=== PATIENT | female | born 1950 | race Caucasian/White ===

== ENCOUNTER → 2017-04-18 | Outpatient (CLI) | payer BC ==
--- NOTE | 2017-04-19 12:40 | MM ---
Reason for exam: screening (asymptomatic). Last mammogram was performed 1 year ago. History: Patient is postmenopausal and is nulliparous. Family history of breast cancer in maternal aunt. Benign US breast aspiration single RT of the right breast, April 27, 2015. Benign excisional biopsy of the right breast, January 06, 1999. Reductions of both breasts, 1995. Cyst aspiration of the right breast. Took estrogen for 10 years beginning at age 47. Took progesterone for 10 years beginning at age 47. Physical Findings: A clinical breast exam by your physician is recommended on an annual basis and results should be correlated with mammographic findings. MG Screening Mammo w CAD Bilateral CC and MLO view(s) were taken. Prior study comparison: April 15, 2016, bilateral MG 3d diag mammo w/cad JAMILA. April 15, 2016, right breast US breast limited RT. April 13, 2015, bilateral MG screening mammo w CAD. April 04, 2014, bilateral MG screening mammo w CAD. The breast tissue is heterogeneously dense. This may lower the sensitivity of mammography. No significant changes when compared with prior studies. ASSESSMENT: Benign, BI-RAD 2 RECOMMENDATION: Routine screening mammogram of both breasts in 1 year.
== END | disposition home or self-care (01) ==
LOC: RADMAMWWP 11:09
PROVIDERS: ATTEND Internal Medicine
DX: Z12.31 Encounter for screening mammogram for malignant neoplasm of breast (principal); Z29.9 Encounter for prophylactic measures, unspecified

== ENCOUNTER → 2018-04-27 | Outpatient (CLI) | payer BC ==
--- NOTE | 2018-04-30 15:11 | MM ---
Reason for exam: screening (asymptomatic). Last mammogram was performed 1 year ago. History: Patient is postmenopausal and is nulliparous. Family history of breast cancer in maternal aunt. Benign US breast aspiration single RT of the right breast, April 27, 2015. Benign excisional biopsy of the right breast, January 06, 1999. Reductions of both breasts, 1995. Cyst aspiration of the right breast. Took estrogen for 10 years beginning at age 47. Took progesterone for 10 years beginning at age 47. Physical Findings: A clinical breast exam by your physician is recommended on an annual basis and results should be correlated with mammographic findings. MG 3D Screening Mammo W/Cad Bilateral CC and MLO view(s) were taken. Prior study comparison: April 18, 2017, bilateral MG screening mammo w CAD. April 15, 2016, bilateral MG 3d diag mammo w/cad JAMILA. The breast tissue is heterogeneously dense. This may lower the sensitivity of mammography. Previous mammotome biopsy in the right breast. There is chronic nodularity bilaterally. Two groups of microcalcifications in the right breast are unchanged. No significant changes when compared with prior studies. ASSESSMENT: Benign, BI-RAD 2 RECOMMENDATION: Routine screening mammogram of both breasts in 1 year.
== END | disposition home or self-care (01) ==
LOC: RADMAMWWP 10:52
PROVIDERS: ATTEND Family Medicine
DX: Z12.31 Encounter for screening mammogram for malignant neoplasm of breast (principal)
CPT/HCPCS: 77063; 77067

== ENCOUNTER → 2023-01-12 | Day surgery (SDC) | payer BC ==
--- NOTE | 2023-01-12 09:10 | P.PCN ---
Date of Procedure: 01/12/23 Preoperative Diagnosis: Microcalcifications of concern right breast upper outer quadrant Postoperative Diagnosis: Same Procedure(s) Performed: Stereotactic core biopsy right breast Anesthesia: local Surgeon: Heather Boyd Pathology: other (Breast tissue, radiograph reveals microcalcifications of concern) Condition: stable Disposition: same day Indications for Procedure: Microcalcifications of concern right breast upper outer quadrant Operative Findings: Radiograph of specimen reveals microcalcifications of concern Description of Procedure: The patient is a 72-year-old white female seen in consultation for Dr. Marc 1 a routine screening mammogram was noted to have microcalcifications of concern in the 9 o'clock position of the right breast. Risk and benefits of stereotactic core biopsy were discussed with the patient and she wishes to proceed. Additionally a palpable area in the right breast was identified which will be further evaluated after the stereotactic core biopsy. The patient was taken to the stereotactic core biopsy room. She was positioned prone on the Lo-rad table. A retail representative film was obtained: a lateral to medial approach was utilized. The calcifications of concern were identified. The calcifications were targeted. The breast was prepped using Betadine. 20 mL of 1% lidocaine were used to anesthetize the area of concern. A 9-gauge vacuum- assisted core rotating biopsy needle was driven to the correct coordinates. A prefire film was obtained. The needle appeared to be in the correct location. The needle was fired. A postoperative film was obtained, the needle appeared to be in the correct location. 12 specimens were obtained. Radiograph of the specimen revealed only one small microcalcification therefore repeat radiograph was obtained. The needle was advanced slightly. 5 additional specimens were obtained. Radiograph of the new specimen revealed the calcifications of concern. A secure ale top-hat clip was placed. The clip appeared to be in the correct location. The patient tolerated the procedure in stable condition. The specimen will be sent to pathology. The patient will follow-up with Dr. Spivey next week. The patient also had an area of probable change noted in her right breast and this will be evaluated as well.
--- NOTE | 2023-01-12 12:18 | MM ---
Addendum entered and electronically signed by Heather Boyd MD 01/12/23 09:41: Following the stereotactic core biopsy the palpable change which had been felt in the right breast appears to be dissipated. It is possible that this was sampled and the stereo biopsy. We will check this area again when she comes next week for her post procedure visit. Original Note: Date of Procedure: 01/12/23 Preoperative Diagnosis: Microcalcifications of concern right breast upper outer quadrant Postoperative Diagnosis: Same Procedure(s) Performed: Stereotactic core biopsy right breast Anesthesia: local Surgeon: Heather Boyd Pathology: other (Breast tissue, radiograph reveals microcalcifications of concern) Condition: stable Disposition: same day Indications for Procedure: Microcalcifications of concern right breast upper outer quadrant Operative Findings: Radiograph of specimen reveals microcalcifications of concern Description of Procedure: The patient is a 72-year-old white female seen in consultation for Dr. Marc. A routine screening mammogram was noted to have microcalcifications of concern in the 9 o'clock position of the right breast. Risk and benefits of stereotactic core biopsy were discussed with the patient and she wished to proceed. Additionally a palpable area in the right breast was identified which will be further evaluated after the stereotactic core biopsy. The patient was taken to the stereotactic core biopsy room. She was positioned prone on the Lo-rad table. A baggage smasher film was obtained: a lateral to medial approach was utilized. The calcifications of concern were identified. The calcifications were targeted. The breast was prepped using Betadine. 20 mL of 1% lidocaine were used to anesthetize the area of concern. A 9-gauge vacuum- assisted core rotating biopsy needle was driven to the correct coordinates. A prefire film was obtained. The needle appeared to be in the correct location. The needle was fired. A postoperative film was obtained, the needle appeared to be in the correct location. 12 specimens were obtained. Radiograph of the specimen revealed only one small microcalcification therefore repeat sampling was obtained. The needle was advanced slightly. 5 additional specimens were obtained. Radiograph of the new specimen revealed the calcifications of concern. A secure ale top-hat clip was placed. The clip appeared to be in the correct location. The patient tolerated the procedure in stable condition. The specimen will be sent to pathology. The patient will follow-up with Dr. Spivey next week. The patient also had an area of probable change noted in her right breast and this will be evaluated as well. MTDD
== END ==
LOC: RADMAMWWP 07:14
PROVIDERS: ATTEND Surgery
DX: N60.21 Fibroadenosis of right breast (principal)
CPT/HCPCS: 88305; 19081; A4648

== ENCOUNTER → 2023-01-12 | Outpatient (CLI) | payer BC ==
[2023-01-12 07:43] VITALS: BP 120/64; PULSE 91; RESP 18; TEMP 97.6
--- NOTE | 2023-01-12 08:12 | P.GSHP ---
History of Present Illness H&P Date: 01/12/23 Chief Complaint: Abnormal right breast mammogram Yenifer is a 72-year-old white female seen in consultation for Dr. Marc regarding an abnormal right breast mammogram. She underwent a bilateral mammogram of the breast on 2922. Cooperative microcalcifications at the po sterior third of the right breast at the 9 o'clock position were noted. Additional views of the right breast for recommended and these were performed and 3323 pleomorphic demonstrated cluster calcifications in the right breast at 9:00 were noted in stereotactic core biopsy was recommended. Nothing of concern had been noted in the left breast. She does not feel any lumps masses or nodules of concern in either breast. She had a biopsy done approximately 20 years ago and she does not remember which breast but it was not malignant. She does not complain of any recent trauma or infection the breast. She is not complaining of any nipple discharge or skin changes. She has had bilateral breast reduction. Caffeine:1 cup coffee/day nicotien: none chocolate: occasional BCP: none Family History: maternal aunt: of breast cancer sister: breast cancer Hormonal History: menarche: 15 G0 menopause: 48 hormones: none Surgical History: appy gallbladder breast reduction Medical History: HTN GERD depression anxiety muscle aches back pain Social History: nicotine: none alcohol: beer daily drugs: Marijuana gummies at night - Constitutional Constitutional: Denies chills, Denies fever - EENT Eyes: denies blurred vision, denies pain Ears: deny: decreased hearing, tinnitus Ears, nose, mouth and throat: Reports headache, Denies sore throat - Breasts Breasts: bilateral: as per HPI - Cardiovascular Comment: tachycardia Cardiovascular: Reports shortness of breath, Denies chest pain - Respiratory Respiratory: Reports cough - Gastrointestinal Comment: GERD - Genitourinary (Female) Genitourinary: Denies dysuria, Denies hematuria - Menstruation Menstruation: Reports postmenopausal - Musculoskeletal Musculoskeletal: Reports myalgias - Integumentary Integumentary: Denies pruritus, Denies rash - Neurological Neurological: Denies numbness, Denies weakness - Psychiatric Psychiatric: Reports anxiety, Reports depression - Endocrine Endocrine: Reports fatigue - Hematologic/Lymphatic Comment: none - Allergic/Immunologic Allergic/Immunologic: Reports seasonal allergies Past Medical History Past Medical History: GERD/Reflux, Osteoarthritis (OA) Additional Past Medical History / Comment(s): back pain frequent History of Any Multi-Drug Resistant Organisms: None Reported Past Surgical History: Appendectomy, Breast Surgery Additional Past Surgical History / Comment(s): breast reduction Past Anesthesia/Blood Transfusion Reactions: No Reported Reaction Past Psychological History: Anxiety Smoking Status: Former smoker Past Alcohol Use History: Daily Additional Past Alcohol Use History / Comment(s): quit smoking age 22. frequent daily one beer, not always Past Drug Use History: None Reported - Past Family History Mother Family Medical History: No Reported History Medications and Allergies Home Medications Medication Instructions Recorded Confirmed Type ALPRAZolam [Xanax] 0.5 mg PO BID PRN 02/17/15 01/12/23 History Cyclobenzaprine [Flexeril] 10 mg PO BID 02/17/15 01/12/23 History Omeprazole [PriLOSEC] 20 mg PO AC-BRKFST 02/17/15 01/12/23 History Sertraline [Zoloft] 100 mg PO DAILY 02/17/15 01/12/23 History Zolpidem [Ambien] 10 mg PO HS PRN 02/17/15 01/12/23 History Allergies Allergy/AdvReac Type Severity Reaction Status Date / Time No Known Allergies Allergy Verified 01/12/23 07:34 Surgical - Exam Vital Signs Temp Pulse Resp BP Pulse Ox 97.6 F 91 18 120/64 100 01/12/23 07:36 01/12/23 07:36 01/12/23 07:36 01/12/23 07:36 01/12/23 07:36 BMI: 22.3 - General moderate distress - Eyes normal ocular movement - Neck trachea midline - Respiratory normal respiratory effort, clear to auscultation - Cardiovascular Rhythm: regular Heart Sounds: normal: S1, S2 - Abdomen Abdomen: soft, non tender, no guarding, no rigid, no rebound - Integumentary normal turgor - Neurologic no disoriented, no combative - Musculoskeletal normal gait - Psychiatric oriented to time, oriented to person, oriented to place, speech is normal, memory intact Breast Exam: BRA: 40C inspection: Bilateral well-healed scars from prior reduction mammoplasty Palpation: Right breast: multiple positional exam fibers glandular tissue, at approximately the 8 o'clock position approximately 3 cm from the nipple there is an area of nodularity which is firm and is most likely related to scar tissue but it is more discrete than the surrounding tissue Right axilla: No adenopathy of concern Left breast: Multi-positional exam fibroglandular tissue, post operative changes, no dominant masses or nodules of concern Left axilla: No adenopathy of concern Results Mammogram reviewed with Dr. Thomas, a true lateral view was recommended Assessment and Plan Assessment: Impression: Radiographic abnormality right breast/additional views recommended Palpable change right breast at approximately 8 o'clock position may or may not correspond to radiographic abnormality Status post bilateral reduction mammoplasty Family history of breast cancer Plan: Stereotactic core biopsy right breast microcalcifications of concern Possible core biopsy of palpable abnormality right breast Risk and benefits of surgery to core biopsy discussed with the patient. Risks include but are not limited to bleeding, infection, reaction to the anesthetic. If the lesion samples is discordant been possible open biopsy would be recommended. The patient understands and wishes to proceed Cc: Dr. Marc
== END ==
LOC: WWCWWP 07:13
PROVIDERS: ATTEND Surgery
DX: Z85.3 Personal history of malignant neoplasm of breast (principal); F32.A Depression, unspecified; F41.9 Anxiety disorder, unspecified; I10 Essential (primary) hypertension; K21.9 Gastro-esophageal reflux disease without esophagitis; M19.90 Unspecified osteoarthritis, unspecified site; Z80.3 Family history of malignant neoplasm of breast; Z87.891 Personal history of nicotine dependence; Z90.49 Acquired absence of other specified parts of digestive tract

== ENCOUNTER → 2023-03-09 | Outpatient (CLI) | payer BC ==
[2023-03-09 12:35] VITALS: BP 123/73; PULSE 95; RESP 18; TEMP 97.4
== END ==
LOC: WWCWWP 11:42
PROVIDERS: ATTEND Surgery
DX: N62 Hypertrophy of breast (principal); Z87.891 Personal history of nicotine dependence; Z53.21 Procedure and treatment not carried out due to patient leaving prior to being seen by health care provider

== ENCOUNTER → 2023-04-27 | Outpatient (CLI) | payer BC ==
--- NOTE | 2023-04-27 16:12 | P.PN ---
Subjective Progress Note Date: 04/27/23 Principal diagnosis: atypical lobular hyperplasia Abnormal right breast mammogram Yenifer is a 72-year-old white female seen in consultation for Dr. Marc regarding an abnormal right breast mammogram. She underwent a bilateral mammogram of the breast on 2922. Cooperative microcalcifications at the posterior third of the right breast at the 9 o'clock position were noted. Additional views of the right breast for recommended and these were performed and 3323 pleomorphic demonstrated cluster calcifications in the right breast at 9:00 were noted in stereotactic core biopsy was recommended. Nothing of concern had been noted in the left breast. She does not feel any lumps masses or nodules of concern in either breast. She had a biopsy done approximately 20 years ago and she does not remember which breast but it was not malignant. She does not complain of any recent trauma or infection the breast. She is not complaining of any nipple discharge or skin changes. She has had bilateral breast reduction. stero biopsy of the right breast on 01-12-23 revealed focal atypical hyperplasia, radiograph reviewed with Dr. Webb who thought there were additional microcalcifications and a nocule. Recmmended resection in the OR. Caffeine:1 cup coffee/day nicotien: none chocolate: occasional BCP: none Family History: maternal aunt: of breast cancer sister: breast cancer Hormonal History: menarche: 15 G0 menopause: 48 hormones: none Surgical History: appy gallbladder breast reduction Medical History: HTN GERD depression anxiety muscle aches back pain Social History: nicotine: none alcohol: beer daily drugs: Marijuana gummies at night - Constitutional Constitutional: Denies chills, Denies fever - EENT Eyes: denies blurred vision, denies pain Ears: deny: decreased hearing, tinnitus Ears, nose, mouth and throat: Reports headache, Denies sore throat - Breasts Breasts: bilateral: as per HPI - Cardiovascular Comment: tachycardia Cardiovascular: Reports shortness of breath, Denies chest pain - Respiratory Respiratory: Reports cough - Gastrointestinal Comment: GERD - Genitourinary (Female) Genitourinary: Denies dysuria, Denies hematuria - Menstruation Menstruation: Reports postmenopausal - Musculoskeletal Musculoskeletal: Reports myalgias - Integumentary Integumentary: Denies pruritus, Denies rash - Neurological Neurological: Denies numbness, Denies weakness - Psychiatric Psychiatric: Reports anxiety, Reports depression - Endocrine Endocrine: Reports fatigue - Hematologic/Lymphatic Comment: none - Allergic/Immunologic Allergic/Immunologic: Reports seasonal allergies Past Medical History Past Medical History: GERD/Reflux, Osteoarthritis (OA) Additional Past Medical History / Comment(s): back pain frequent History of Any Multi-Drug Resistant Organisms: None Reported Past Surgical History: Appendectomy, Breast Surgery Additional Past Surgical History / Comment(s): breast reduction Past Anesthesia/Blood Transfusion Reactions: No Reported Reaction Past Psychological History: Anxiety Smoking Status: Former smoker Past Alcohol Use History: Daily Additional Past Alcohol Use History / Comment(s): quit smoking age 22. frequent daily one beer, not always Past Drug Use History: None Reported - Past Family History Mother Family Medical History: No Reported History Medications and Allergies Home Medications Medication Instructions Recorded Confirmed Type ALPRAZolam [Xanax] 0.5 mg PO BID PRN 02/17/15 01/12/23 History Cyclobenzaprine [Flexeril] 10 mg PO BID 02/17/15 01/12/23 History Omeprazole [PriLOSEC] 20 mg PO AC-BRKFST 02/17/15 01/12/23 History Sertraline [Zoloft] 100 mg PO DAILY 02/17/15 01/12/23 History Zolpidem [Ambien] 10 mg PO HS PRN 02/17/15 01/12/23 History Allergies Allergy/AdvReac Type Severity Reaction Status Date / Time No Known Allergies Allergy Verified 01/12/23 07:34 Objective - Constitutional General appearance: Present: cooperative - EENT Eyes: Present: EOMI ENT: Present: hearing grossly normal - Neck Neck: Present: normal ROM - Respiratory Respiratory: bilateral: CTA - Cardiovascular Heart sounds: normal: S1, S2 - Gastrointestinal General gastrointestinal: Present: soft - Integumentary Integumentary: Present: normal turgor - Musculoskeletal Musculoskeletal: Present: gait normal - Psychiatric Psychiatric: Present: A&O x's 3, appropriate affect, intact judgment & insight - Additional findings Additional findings: Breast Exam: BRA: 40C inspection: Bilateral well-healed scars from prior reduction mammoplasty Palpation: Right breast: multiple positional exam fibers glandular tissue, at approximately the 8 o'clock position approximately 3 cm from the nipple there is an area of nodularity which is firm and is most likely related to scar tissue but it is more discrete than the surrounding tissue Right axilla: No adenopathy of concern Left breast: Multi-positional exam fibroglandular tissue, post operative changes, no dominant masses or nodules of concern Left axilla: No adenopathy of concern Assessment and Plan Assessment: Impression: HTN GERD depression anxiety muscle aches back pain Atypical lobular hyperplasia on core biopsy right breast/reviewed with Dr. Webb from radiology who felt there was nodularity and additional calcifications in the area and recommended needle localization and excision Plan: Needle localization and excisional biopsy lesion of concern in the right breast, possible onco- plastic tissue transfer Risks and benefits of the procedure discussed with the patient. Risks include but are not limited to bleeding, infection, reaction to the anesthetic. If the needle removed that is possible that additional tissue would need to be retrieved at a later time. CC: DR. Hay
[2023-04-27 16:13] VITALS: BP 98/61; PULSE 93; RESP 16; TEMP 97.7
== END ==
LOC: WWCWWP 15:27
PROVIDERS: ATTEND Surgery
DX: N62 Hypertrophy of breast (principal); N60.91 Unspecified benign mammary dysplasia of right breast; I10 Essential (primary) hypertension; K21.9 Gastro-esophageal reflux disease without esophagitis; F32.A Depression, unspecified; F41.9 Anxiety disorder, unspecified; M19.90 Unspecified osteoarthritis, unspecified site; Z80.3 Family history of malignant neoplasm of breast; Z87.891 Personal history of nicotine dependence

== ENCOUNTER 2023-05-09 07:21 | Day surgery (SDC) | payer BC ==
[~2023-05-09 07:21] MED LIST: DEXAMETHASONE SOD PHOSPHATE 4 MG/ML 1 ML VIAL IV ONE; HEPARIN SODIUM,PORCINE/PF 5,000 UNIT/0.5 ML SYRINGE SQ PRN; HYDROmorphone 0.5 MG/0.5 ML SYRINGE IVP PRN; LACTATED RINGERS 1,000 ML IV SCH; MIDAZOLAM 2 MG/2 ML VIAL IV PRN; ONDANSETRON 4 MG/2 ML VIAL IVP ONE; Pre Op ABX Message 1 EACH MISC MISCELLANE ONE
[2023-05-09] MEDS ORDERED: ALPRAZolam 0.25 MG TAB ONE (08:13)
[2023-05-09] MEDS ORDERED: ALPRAZolam 0.25 MG TAB PO ONE (08:21)
[2023-05-09 08:33] LABS: Anisocytosis Slight; Basophils % (A) 1 %; Eosinophils # (A) 0.2 k/uL (0-0.7); Eosinophils % (A) 2 %; HCT 28.9 % (34.0-46.0); HGB 9.4 gm/dL (11.4-16.0); Hypochromasia Slight; Lymphocytes # (A) 1.1 k/uL (1.0-4.8); Lymphocytes % (A) 15 %; MCH 26.1 pg (25.0-35.0); MCHC 32.4 g/dL (31.0-37.0); MCV 80.4 fL (80.0-100.0); Mean Platelet Volume 7.5; Microcytosis Slight; Monocytes # (A) 0.2 k/uL (0-1.0); Monocytes % (A) 3 %; Neutrophils # (A) 5.6 k/uL (1.3-7.7); Neutrophils % (A) 78 %; Platelet Count 339 k/uL (150-450); RBC 3.59 m/uL (3.80-5.40); RDW 17.5 % (11.5-15.5); WBC 7.1 k/uL (3.8-10.6)
[2023-05-09 08:43] LABS: ALT 15 U/L (4-34); AST 26 U/L (14-36); African American GFR (CKD) 50 (>60 ml/min/1.73 sqM); Albumin 4.2 g/dL (3.5-5.0); Alkaline Phosphatase 105 U/L (38-126); Anion Gap 5 mmol/L; Blood Urea Nitrogen 16 mg/dL (7-17); Calcium 9.4 mg/dL (8.4-10.2); Carbon Dioxide 25 mmol/L (22-30); Chloride 104 mmol/L (98-107); Glucose 90 mg/dL (74-99); Non-African American GFR(CKD) 43 (>60 ml/min/1.73 sqM); Potassium 3.9 mmol/L (3.5-5.1); Sodium 134 mmol/L (137-145); Total Bilirubin 0.3 mg/dL (0.2-1.3); Total Protein 6.9 g/dL (6.3-8.2)
[2023-05-09] MEDS ORDERED: LIDOCAINE 1% INJ 10MG/ML (20 ML MDV) SQ ONE (09:04)
[2023-05-09 09:45] VITALS: RESP 16
[2023-05-09] MEDS ORDERED: HYDROmorphone (PF) 1 MG/ML ONE (09:48)
[2023-05-09] MEDS ORDERED: fentaNYL (PF) 50 MCG/ML 2 ML AMP ONE (09:48)
[2023-05-09] MEDS ORDERED: MIDAZOLAM 2 MG/2 ML VIAL ONE (09:48)
[2023-05-09] MEDS ORDERED: PHENYLEPHRINE-0.9% NACL SYG 1,000 MCG/10 ML SYRINGE ONE (09:48)
[2023-05-09] MEDS ORDERED: PROPOFOL 10 MG/ML 20 ML VIAL IV ONE (09:48)
--- NOTE | 2023-05-09 10:50 | P.OP ---
Date of Procedure: 05/09/23 Preoperative Diagnosis: Atypical ductal hyperplasia on stereotactic core biopsy right breast Postoperative Diagnosis: Same Procedure(s) Performed: Right breast needle localization area of concern as well as made the placement to the area of concern with localization and excisional biopsy Anesthesia: ARGELIA Surgeon: Heather Boyd Estimated Blood Loss (ml): 3 IV fluids (ml): 300 Pathology: other (Breast tissue) Condition: stable Disposition: same day Indications for Procedure: Stereotactic core biopsy right breast revealing atypical ductal hyperplasia Operative Findings: Fibrofatty breast tissue Description of Procedure: The patient preoperatively was seen in the radiology suite where needle localization of the area of concern was performed as well as make seed placement. She was then brought to the operative suite. Following induction of anesthesia the right breast was prepped and draped in a sterile fashion. Using the wand from the food the area of highest was identified. Wide excision was performed including taking a portion of the skin anteriorly. Dissection was performed posterior onto the pectoralis muscle. After assured that hemostasis was attained the specimen was painted for orientation. Surgicel however powder was placed. The deep tissues were closed using 3-0 Vicryl suture. The subcutaneous tissue was closed using 3-0 Vicryl. This was followed by a 4-0 subcuticular skin suture. Steri-Strips were applied. All instrument and sponge counts were correct at the end of the case. Radiograph of the specimen revealed that the clip as well as the mag seed to be present.
[2023-05-09 11:02] VITALS: TEMP 97.1
[2023-05-09 11:05] LABS: Glucose,Whole Blood 118 mg/dL (70-110)
[2023-05-09] MEDS ORDERED: HYDROcodone/APAP 5-325MG 1 EACH TAB ONE (12:00)
[2023-05-09] MEDS ORDERED: HYDROcodone/APAP 5-325MG 1 EACH TAB PO ONE (12:02)
[2023-05-09 12:45] VITALS: BP 112/58; PULSE 92
--- NOTE | 2023-05-17 12:38 | MM ---
Risk Values: [place] 5 year model risk: 2.7%. NCI Lifetime model risk: 6.5%. Pathology Description: Approach: Lateral to Medial Needle Type: Bard 14g x 10cm bards 7cm needle used and mag seedThe procedure of needle localization with wire placement and than surgical excision was explained to the patient. Benefits, alternatives, and risks were discussed. An informed consent was then obtained. The shortest pathway for procedure was chosen. Shortest pathway was a lateral approach. The microclip as well as the residual microcalcifications are targeted at the site of biopsy-proven ADH. The overlying skin was prepped and draped in usual sterile fashion. Lidocaine was used as anesthetic into the skin and subcutaneous tissue up to the level of area of concern. Both a 9 cm needle as well as a Mammotome MagSeed were used. The needle/wire targeting the clip in the MagSeed introducer targeted the residual calcifications located just posterior. They were placed via a lateral approach under mammographic guidance. Subsequent 90 degrees mammogram shows both needles to be in satisfactory position relative to the targeted area. At this point, wire was placed and the needle was withdrawn and the MagSeed was deployed. The wire was fixed to patient's skin. Images were marked for surgeon. The patient tolerated the procedure well without any immediate complication. The patient was kept in the radiology department for short stay after the procedure and then taken to surgery for surgical excision. Targeted clip, MagSeed, residual microcalcifications, and wire are identified in specimen mammogram. The patient was kept in hospital for short stay after the procedure and then discharged home in stable condition. IMPRESSION: Successful, uncomplicated needle + MagSeed localization with wire placement and surgical excision of site of biopsy-proven ADH in the right breast, full pathology results to follow. Pathology Results: Result: High risk, Atypical lobular hyperplasia. RIGHT BREAST, LUMPECTOMY: Scattered areas of lobular neoplasia having features compatible with atypical lobular hyperplasia/lobular carcinoma in situ (ALH/LCIS) . Negative for DCIS or invasive carcinoma and all margins negative for malignancy. Non-neoplastic breast with biopsy site change, fibrous scar, fibrocystic change, usual ductal hyperplasia, sclerosing adenosis, and microcalcification. Benign skin present. Overall Assessment: High risk Management: Diagnostic Mammogram of the right breast in 6 months. Electronically signed and approved by: Rickey Thomas M.D. Radiologist
== END 2023-05-09 12:50 | disposition home or self-care (01) ==
LOC: OR 07:21
PROVIDERS: ATTEND Surgery
DX: N60.21 Fibroadenosis of right breast (principal); K21.9 Gastro-esophageal reflux disease without esophagitis; M19.90 Unspecified osteoarthritis, unspecified site; Z90.49 Acquired absence of other specified parts of digestive tract; Z98.890 Other specified postprocedural states; Z79.899 Other long term (current) drug therapy
CPT/HCPCS: 19081; 80053; 85025; 88307; 76098; 19281; C1819; J2250; J1100; J2405; J2001; J3010; J1170; J2704; J1644; J2371

== ENCOUNTER → 2023-05-19 | Outpatient (CLI) | payer BC ==
--- NOTE | 2023-05-19 11:37 | P.PN ---
Progress Note - Text Progress Note Date: 05/19/23 Patient is a 73-year-old female status post right breast lumpectomy on 8122. Pathology revealed atypical lobular hyperplasia/lobular carcinoma in situ. All margins were negative for malignancy. Examination: Incision: Clean and dry Heart: Regular rate and rhythm Lungs: Clear Discussed with her the increased risk of developing invasive cancer with an atypical lobular hyperplasia/lobular carcinoma in situ. I discussed chemoprevention or surgical prophylactic mastectomies. The patient is not interested in either one. Impression: Patient doing well postop Plan: Right breast mammogram in 6 months with physician exam at that time CC: Dr. Marc
== END ==
LOC: WWCWWP 11:23
PROVIDERS: ATTEND Surgery
DX: D05.01 Lobular carcinoma in situ of right breast (principal); N60.91 Unspecified benign mammary dysplasia of right breast; Z98.890 Other specified postprocedural states; Z87.891 Personal history of nicotine dependence

== ENCOUNTER 2025-01-07 04:57 | Inpatient (IN) | payer BC, MEDICARE ==
[2025-01-07 05:54] LABS: Anisocytosis Slight; Basophils % (A) 0 %; Eosinophils # (A) 0.1 k/uL (0-0.7); Eosinophils % (A) 1 %; HCT 34.1 % (34.0-46.0); HGB 10.7 gm/dL (11.4-16.0); Hypochromasia Slight; Lymphocytes % (A) 9 %; MCH 29.8 pg (25.0-35.0); MCHC 31.4 g/dL (31.0-37.0); Mean Platelet Volume 6.9; Monocytes # (A) 0.3 k/uL (0-1.0); Monocytes % (A) 3 %; Neutrophils # (A) 10.3 k/uL (1.3-7.7); Neutrophils % (A) 87 %; Platelet Count 312 k/uL (150-450); RBC 3.59 m/uL (3.80-5.40); RDW 16.2 % (11.5-15.5); WBC 11.8 k/uL (3.8-10.6)
[2025-01-07] MEDS: HYDROmorphone 0.5 MG/0.5 ML SYRINGE IVP STA (05:54)
[2025-01-07 06:18] LABS: African American GFR (CKD) 74 (>60 ml/min/1.73 sqM); Anion Gap 8 mmol/L; Blood Urea Nitrogen 16 mg/dL (7-17); Calcium 9.3 mg/dL (8.4-10.2); Carbon Dioxide 21 mmol/L (22-30); Chloride 113 mmol/L (98-107); Glucose 137 mg/dL (74-99); Non-African American GFR(CKD) 64 (>60 ml/min/1.73 sqM); Potassium 4.4 mmol/L (3.5-5.1); Sodium 142 mmol/L (137-145)
[2025-01-07 06:25] LABS: INR 0.9 (<1.2); Partial Thromboplastin Time 22.2 sec (22.0-30.0)
[2025-01-07] MEDS ORDERED: NALOXONE 0.4 MG/ML 1 ML VIAL IV PRN (06:58)
--- NOTE | 2025-01-07 07:02 | CT ---
EXAM: CT Right Lower Extremity Without Intravenous Contrast CLINICAL HISTORY: ITS.REASON CT Reason: right femur fracture TECHNIQUE: Axial computed tomography images of the right lower extremity without intravenous contrast. CTDI is 10.3 mGy and DLP is 666.2 mGy-cm. This CT exam was performed using one or more of the following dose reduction techniques: automated exposure control, adjustment of the mA and/or kV according to patient size, and/or use of iterative reconstruction technique. COMPARISON: No relevant prior studies available. FINDINGS: Bones/joints: Obliquely oriented fracture is visualized through the distal femoral metaphysis/diaphysis with apex anterior angulation of the fracture fragments. Right hip arthroplasty is in place. Degenerative changes are seen within the visualized spine and left hip. Knee joint effusion with fat fluid level. Soft tissues: Significant soft tissue swelling is seen surrounding the fracture site. IMPRESSION: Obliquely oriented distal femoral fracture.
[2025-01-07] MEDS ORDERED: LORazepam 2 MG/ML INJ IV PRN ×3 (07:17→07:31)
[2025-01-07] MEDS ORDERED: LORazepam 1 MG/0.5 ML VIAL IV PRN ×3 (07:17)
--- NOTE | 2025-01-07 07:21 | ED ---
General Adult HPI - General Chief complaint: Fall Stated complaint: Fall Time Seen by Provider: 01/07/25 05:01 Source: EMS Mode of arrival: EMS - History of Present Illness Initial comments: Patient is a 74-year-old female with a past medical history of generalized anxiety disorder, alcohol dependence, atrial fibrillation on Eliquis presenting today for distal femur fracture. Patient had presented to [facility] after falling in her bathroom earlier this evening. She did not hit her head. EMS was called however patient initially refused transport. She later tried to get out of bed again but was unable to ambulate due to pain in her right lower extremity. She denied neck or back pain. No chest pain or difficulty breathing. No abdominal pain. Patient had a recent similar episode in October that resulted in a femoral neck fracture. At that time she was transferred to [facility] in [place] where she had a right hip replacement. Of note the patient states that she drinks 2 beers a day, patient's niece at bedside states that there is a bottle of vodka found next to the patient this evening. Patient also takes alprazolam, Flexeril, [place] and zolpidem. - Related Data Home Medications Medication Instructions Recorded Confirmed ALPRAZolam [Xanax] 0.5 mg PO BID PRN 02/17/15 01/07/25 Sertraline [Zoloft] 100 mg PO DAILY PRN 02/17/15 01/07/25 Zolpidem Tartrate [Zolpidem 12.5 mg PO HS PRN 05/04/23 01/07/25 Tartrate ER] Apixaban [Eliquis] 5 mg PO DAILY 01/07/25 01/07/25 Metoprolol Succinate (ER) [Toprol 50 mg PO DAILY 01/07/25 01/07/25 Xl] Allergies Allergy/AdvReac Type Severity Reaction Status Date / Time No Known Allergies Allergy Verified 01/07/25 06:54 Review of Systems ROS Statement: Those systems with pertinent positive or pertinent negative responses have been documented in the HPI. ROS Other: All systems not noted in ROS Statement are negative. Past Medical History Past Medical History: GERD/Reflux, Osteoarthritis (OA) Additional Past Medical History / Comment(s): back pain frequent History of Any Multi-Drug Resistant Organisms: None Reported Past Surgical History: Appendectomy, Breast Surgery Additional Past Surgical History / Comment(s): breast reduction Past Anesthesia/Blood Transfusion Reactions: No Reported Reaction Past Psychological History: Anxiety Smoking Status: Former smoker Past Alcohol Use History: Heavy Past Drug Use History: Marijuana - Past Family History Mother Family Medical History: No Reported History General Exam - General Exam Comments Initial Comments: PE: CONSTITUTIONAL: No apparent distress, chronically ill-appearing, nontoxic SKIN: Warm, dry, no jaundice, hives or petechiae. Large hematoma to the dorsal aspect of the right hand, scattered various bruises of various ages across the upper extremities EYES: Pupils are equally round, extraocular movements intact without nystagmus, clear conjunctiva, non-icteric sclera HENT: Normocephalic, atraumatic, moist mucus membranes, oropharynx clear without exudates NECK: , Full range of motion, normal appearance PULMONARY: Clear to auscultation without wheezes, rhonchi, or rales, normal exc ursion, no accessory muscle use and no stridor CARDIOVASCULAR: Regular rate, rhythm, normal S1 and S2. No appreciated murmurs, rubs or gallops. Strong radial and dorsalis pedis pulses with intact distal perfusion. No lower extremity edema GASTROINTESTINAL: Soft, active bowel sounds throughout, non-tender, non- distended, no palpable masses, no rebound or guarding. No hepatosplenomegaly MUSCULOSKELETAL: Extremities have no gross deformity, there is swelling around the mid right lower extremity just proximal to the right knee, tenderness palpation of the region of the distal femur, no point tenderness palpation of either hip bilaterally, sensation intact throughout the right lower extremity, p atient is able to move her right hand through full range of motion, sensation intact, no bony tenderness to palpation NEUROLOGIC:_a/o x 3, GCS 15, normal mentation and speech. Moves all extremities x 4 without motor or sensory deficit, with exception of limited hip flexion and knee flexion extension of the right lower extremity secondary to pain PSYCHIATRIC:_normal mood and affect, thought process is clear and linear Course Vital Signs 01/07/25 01/07/25 01/07/25 04:59 07:57 12:32 Temperature 98.0 F 98 F Pulse Rate 109 H 100 100 Respiratory 18 18 18 Rate Blood Pressure 178/85 156/83 159/80 O2 Sat by Pulse 100 100 98 Oximetry 01/07/25 15:15 Temperature 97.8 F Pulse Rate 98 Respiratory 18 Rate Blood Pressure 155/80 O2 Sat by Pulse 100 Oximetry Medical Decision Making - Medical Decision Making Was pt. sent in by a medical professional or institution (ANA MARIA Burrell, TISSUE SPECIALIST, urgent care, hospital, or skilled nursing...) When possible be specific @ -No Did you speak to anyone other than the patient for history (EMS, parent, family, police, friend...)? What history was obtained from this source @ -No Did you review nursing and triage notes (agree or disagree)? Why? @ -I reviewed nursing and triage notes Were old charts reviewed (outside hosp., previous admission, EMS record, old EKG, old radiological studies, urgent care reports/EKG's, skilled nursing records)? Report findings @ -Medical records reviewed reviewed medical records sent with patient from transferring facility, reviewed x-rays which does show a distal femur fracture, with approximately 50% displacement, reviewed HPI as noted above, reviewed reads of x-rays, pelvis x-ray was read as "a linear lucency noted involving the left superior pubic rami, questionable fracture however no acute fractures identified on the CT exam performed yesterday" x-ray right knee shows acute fracture of the distal femur CT brain was performed that showed no acute process,XR right hand showed no fracture Differential Diagnosis (chest pain, altered mental status, abdominal pain women, abdominal pain men, vaginal bleeding, weakness, fever, dyspnea, syncope, headache, dizziness, GI bleed, back pain, seizure, CVA, palpatations, mental health, musculoskeletal)? @ -Not applicable EKG interpreted by me (3pts min.). @ -As above X-rays interpreted by me (1pt min.). @ -None done CT interpreted by me (1pt min.). Distal femur fracture, agree with radiologist interpretation U/S interpreted by me (1pt. min.). @ -None done What testing was considered but not performed or refused? (CT, X-rays, U/S, labs)? Why? @ -None What meds were considered but not given or refused? Why? @ -None Did you discuss the management of the patient with other professionals (professionals i.e. ANA MARIA Burrell, TISSUE SPECIALIST, lab, RT, psych nurse, psychotherapist social worker, human resources manager, teacher, sustainability officer, family service caseworker)? Give summary Case discussed w/ Dr. Rice, likely OR later today, appreciate recommendations Was smoking cessation discussed for >3mins.? @ -No Was critical care preformed (if so, how long)? @ -No Were there social determinants of health that impacted care today? How? (Homelessness, low income, unemployed, alcoholism, drug addiction, transportation, low edu. Level, literacy, decrease access to med. care, skilled nursing, rehab)? @ -No Was there de-escalation of care discussed even if they declined (Discuss DNR or withdrawal of care, Hospice)? @ -No What co-morbidities impacted this encounter? (DM, HTN, Smoking, COPD, CAD, Cancer, CVA, ARF, Chemo, Hep., AIDS, mental health diagnosis, sleep apnea, morbid obesity)? @alcohol dependence, a fib Was patient admitted / discharged? Hospital course, mention meds given and route, prescriptions, significant lab abnormalities, going to OR and other pertinent info. @ Admission- This is a 74-year-old female past medical history A-fib on Eliquis, multiple sedating medications, alcoholism presenting as a transfer from [facility] for distal right femur fracture. Pain control, basic pr-op labs ordered. Case discussed w/ Dr. Rice, who kindly reviewed XR's, plans for OR later today. Keep patient NPO. Requests CT RLE as well- ordered. Updated pt and niece at to POC. Case discussed with Edi Jj, kindly accepted pt for admission. CIWA orders were placed as well, though pt states she only drinks about 2 cans of beer a day however her niece reports later that pt was not hones t about her alcohol intake. Of note I was later informed by vice president pharmacy that patient has not filled her Eliquis since last March and reportedly only takes it once a day. Unclear if patient is correctly taking her medications. Undiagnosed new problem with uncertain prognosis? @ -No Drug Therapy requiring intensive monitoring for toxicity (Heparin, Nitro, Insulin, Cardizem)? @ -No Were any procedures done? @ -No Diagnosis/symptom? Fall, distal femur fracture Acute, or Chronic, or Acute on Chronic? acute Uncomplicated (without systemic symptoms) or Complicated (systemic symptoms)? uncomplicated Side effects of treatment? @ -No Exacerbation, Progression, or Severe Exacerbation? @ -No Poses a threat to life or bodily function? How? (Chest pain, [place], [place], pneumonia, PE, COPD, DKA, ARF, appy, cholecystitis, CVA, Diverticulitis, Homicidal, Suicidal, threat to staff... and all critical care pts) Poses threat to bodily function- use of RLE - Lab Data Result diagrams: 01/07/25 05:41 01/07/25 05:41 Lab Results 01/07/25 01/07/25 01/07/25 Range/Units 05:41 05:41 05:41 WBC 11.8 H (3.8-10.6) k/uL RBC 3.59 L (3.80-5.40) m/uL Hgb 10.7 L (11.4-16.0) gm/dL Hct 34.1 (34.0-46.0) % MCV 95.0 (80.0-100.0) fL MCH 29.8 (25.0-35.0) pg MCHC 31.4 (31.0-37.0) g/dL RDW 16.2 H (11.5-15.5) % Plt Count 312 (150-450) k/uL MPV 6.9 Neutrophils % 87 % Lymphocytes % 9 % Monocytes % 3 % Eosinophils % 1 % Basophils % 0 % Neutrophils # 10.3 H (1.3-7.7) k/uL Lymphocytes # 1.0 (1.0-4.8) k/uL Monocytes # 0.3 (0-1.0) k/uL Eosinophils # 0.1 (0-0.7) k/uL Basophils # 0.0 (0-0.2) k/uL Hypochromasia Slight Anisocytosis Slight PT 10.0 (10.0-12.5) sec INR 0.9 (<1.2) APTT 22.2 (22.0-30.0) sec Sodium 142 (137-145) mmol/L Potassium 4.4 (3.5-5.1) mmol/L Chloride 113 H (98-107) mmol/L Carbon Dioxide 21 L (22-30) mmol/L Anion Gap 8 mmol/L BUN 16 (7-17) mg/dL Creatinine 0.89 (0.52-1.04) mg/dL Est GFR (CKD-EPI)AfAm 74 (>60 ml/min/1.73 sqM) Est GFR (CKD-EPI)NonAf 64 (>60 ml/min/1.73 sqM) Glucose 137 H (74-99) mg/dL Calcium 9.3 (8.4-10.2) mg/dL Disposition Clinical Impression: Fall, Femoral distal fracture Disposition: ADMITTED IP TO THIS HOSP Condition: Stable
--- NOTE | 2025-01-07 08:46 | P.HPIM ---
History of Present Illness H&P Date: 01/07/25 History of Presenting Illness: Patient is a very pleasant 74-year-old female with a past medical history of daily alcohol abuse, anxiety, cannabinoid use disorder, and atrial fibrillation on anticoagulation with Eliquis. She presented to our facility as a transfer from [facility] after falling in the bathroom resulting in injury to her right leg. Per ED documentation, EMS was initially called to home but patient refused transfer but later was unable to ambulate due to continued and worsening pain in her right lower extremity so EMS was called back out to the residence and she was taken to [facility]. Patient denied hitting her head or having any loss of consciousness saying she fell directly onto her right knee and leg and that is her only injury. At [facility] patient was found to have a fractured right femur and was transferred to our facility for admission and treatment by orthopedic surgery team. On arrival to our facility, patient underwent evaluation in the emergency department. Vital signs upon arrival show blood pressure 178/85, heart rate 109, respiratory, temp 98.0 F, and SpO2 of 100% on room air. Labs completed and reviewed. CBC showing leukocytosis with WBC count of 11.8 and hemoglobin of 10.7. Coagulation profile normal findings. BMP showing mild non-anion gap metabolic acidosis with chloride of 113, bicarb of 21, and anion gap of 8. Blood glucose was 137. CT right lower extremity without IV contrast was completed showing an obliquely oriented distal femur fracture with apex angulation of the fracture fragments and previous right hip arthroplasty in place. Per request of orthopedic surgery team patient was admitted under our services and orthopedic surgery on consult. Patient seen and fully evaluated at bedside. She currently reports pain to right leg/thigh and denies any other complaints or injuries. Patient does report mild point tenderness to right upper chest near her right shoulder, no obvious bruise or deformity noted and patient has noted swelling and bruising of right hand. Patient reports she fell onto her bottom and states it is possible she hit her right side of chest/shoulder on the toilet and does admit to pain when asked in her right hand. Patient again denies hitting her head or having any loss of consciousness, headache, lightheadedness, dizziness, chest pain other than point tenderness to right upper chest near shoulder, palpitations, shortness of breath, nausea, vomiting, or experiencing any numbness in her extre mities. Patient does admit to drinking 2 beers and 2 shots of vodka daily. Per documentation in chart patient was found initially by EMS and niece with an empty bottle of vodka next to her. Patient also admits to cannabinoid use with Gummies nightly. Review of systems: Pertinent positives and negatives as discussed in HPI, a complete review of systems was performed and all other systems are negative. Physical exam: Vital signs reviewed and stable. General: Nontoxic, no distress and appears stated age. Derm: Skin warm and dry, normal coloration for ethnicity. Head: Atraumatic, normocephalic and symmetric. No obvious injury or bruising noted. Eyes: EOM's intact, no lid lag, and anicteric sclera Mouth: no lip lesions, mucus membranes moist Cardiovascular: Tachycardic rate with regular rhythm, normal S1S2, no murmur, positive posterior tibial pulses bilaterally, and cap refill < 2 seconds. Lungs: Respirations even, regular, and unlabored on room air. Lungs CTA bilaterally, no rhonchi, no rales, no wheezing, and no accessory muscle usage. Abdominal: soft, nontender to palpation, no guarding, no appreciable organomegaly Ext: No gross muscle atrophy, no edema, no contractures, right lower extremity elevated on pillows below knee. No obvious deformity noted of right lower extremity, mild swelling to right lower thigh no acute bruising seen. Patient with moderate swelling and bruising of right hand/wrist Neuro: Speech clear, face symmetrical and CN II-XII grossly intact with no noted focal neuro deficits Psych: Alert and oriented to person, place, time, and situation. Appropriate and pleasant affect. Assessment and Plan of Care: Preoperative Clearance Right obliquely oriented distal femur fracture -METS score >4 -NSQIP surgical risk score was calculated. Patient had a below average risk for serious complication at 4.3% with average risk being 8.5%, below average risk of cardiac complication at 0.3% with average risk being 1.2% below average risk of at 0.4% with average risk being 3.3%. -Patient currently sinus tachycardia on monitor, order placed for preoperative EKG to be completed. -Patient is at an increased risk to undergo any surgical procedure secondary to daily alcohol use/abuse along with history of atrial fibrillation on anticoagulant with last reports of taking Eliquis being on the evening of 03/07/25. However, as stated above, METS and NSQIP score shows pt at a below average risk and she is currently medically optimized to undergo planned ORIF of right hip with placement of plate versus retrograde nailing as scheduled with Dr. Rice. Recommend patient remain on continuous telemetry monitoring preoperatively, intraoperatively, and postoperatively. Patient to resume Eliquis for treatment of her atrial fibrillation after completion of surgical procedure and cleared by orthopedic surgery team to resume. Right shoulder/upper chest pain and point tenderness Right hand pain/bruising/swelling -Order placed for x-ray right hand and wrist as well as x-ray chest and right s houlder. Daily alcohol use/abuse -Order placed for monitoring of CIWA scores and patient to be medicated with Ativan 0.5 mg every 4 hours as needed for CIWA score of 4-5, Ativan 1 mg every 4 hours for CIWA score of 6-7, Ativan 2 mg every 3 hours CIWA score of 8-9, and Ativan 2 mg every 2 hours forr CIWA score of 10 or greater. -Continuous IV hydration. -Thiamine 100 mg daily, and Multivitamin daily, and Folate 1 mg daily -Seizure, fall, aspiration, and elopement precautions in place. -Continued close monitoring of electrolytes and replace as needed. -Telemetry monitoring. Normocytic anemia -Likely chronic secondary to daily alcohol abuse, however unknown baseline. Previous documentation in chart shows hemoglobin of 9.4 in 2022. -Patient is also on home anticoagulant with Eliquis, currently held for pending surgical procedure. -Continue close monitoring with repeat CBC and transfuse as indicated for he moglobin less than 7. Paroxysmal Atrial fibrillation -Eliquis held at this time secondary to impending surgical procedure, patient to continue with metoprolol 25 mg twice daily. Anxiety with depression -Continue home medication regimen with sertraline 100 mg daily as needed for anxiety. Data and imaging reviewed: As stated above in HPI The patient is admitted with an anticipated greater than 2 midnight stay for evaluation of right femur fracture CODE STATUS: Full code DVT prophylaxis: DVT prophylaxis as per orthopedic surgery team, recommend resumption of Eliquis once medically cleared by Ortho to resume. Discussed with: Patient, RN, ED physician, and patient's family at bedside. Anticipated discharge date: Pending clinical course Anticipated discharge place: Home with home care versus rehab Patient was seen independently by Nurse Practitioner. This document was prepared using [employer] dictation software. Please allow for errors in racecourse barrier attendant while rare they do occur. Matti Shields NP rendered care for this patient independently, reviewed the findings and plan as documented in the note above and agree with plan. I did not physically speak with or examine the patient on this date. Past Medical History Past Medical History: GERD/Reflux, Osteoarthritis (OA) Additional Past Medical History / Comment(s): back pain frequent History of Any Multi-Drug Resistant Organisms: None Reported Past Surgical History: Appendectomy, Breast Surgery Additional Past Surgical History / Comment(s): breast reduction Past Anesthesia/Blood Transfusion Reactions: No Reported Reaction Past Psychological History: Anxiety Smoking Status: Former smoker Past Alcohol Use History: Heavy Past Drug Use History: Marijuana - Past Family History Mother Family Medical History: No Reported History Medications and Allergies Home Medications Medication Instructions Recorded Confirmed Type ALPRAZolam [Xanax] 0.5 mg PO BID PRN 02/17/15 01/07/25 History Sertraline [Zoloft] 100 mg PO DAILY PRN 02/17/15 01/07/25 History Zolpidem Tartrate [Zolpidem 12.5 mg PO HS PRN 05/04/23 01/07/25 History Tartrate ER] Apixaban [Eliquis] 5 mg PO DAILY 01/07/25 01/07/25 History Metoprolol Succinate (ER) [Toprol 50 mg PO DAILY 01/07/25 01/07/25 History Xl] Allergies Allergy/AdvReac Type Severity Reaction Status Date / Time No Known Allergies Allergy Verified 01/07/25 06:54 Physical Exam Vitals: Vital Signs Temp Pulse Resp BP Pulse Ox 01/07/25 04:59 98.0 F 109 H 18 178/85 100 Intake and Output 01/06/25 01/07/25 01/07/25 22:59 06:59 14:59 Other: Weight 58.967 kg Results CBC & Chem 7: 01/07/25 05:41 01/07/25 05:41 Labs: Abnormal Lab Results - Last 24 Hours (Table) 01/07/25 01/07/25 Range/Units 05:41 05:41 WBC 11.8 H (3.8-10.6) k/uL RBC 3.59 L (3.80-5.40) m/uL Hgb 10.7 L (11.4-16.0) gm/dL RDW 16.2 H (11.5-15.5) % Neutrophils # 10.3 H (1.3-7.7) k/uL Chloride 113 H (98-107) mmol/L Carbon Dioxide 21 L (22-30) mmol/L Glucose 137 H (74-99) mg/dL
[2025-01-07] MEDS: HYDROmorphone 1 MG/ML 1 ML SYRINGE IVP PRN (08:55)
[2025-01-07] MEDS: DEXTROSE 5%-0.45% NACL 1,000 ML IV SCH ×2 (08:59→10:02)
[2025-01-07] MEDS ORDERED: METOPROLOL SUCCINATE (ER) 50 MG TAB.ER.24H PO SCH (09:00)
[2025-01-07] MEDS: MULTIVITAMINS, THERA 1 EACH TAB PO SCH (09:01)
[2025-01-07] MEDS: METOPROLOL TARTRATE 25 MG TAB PO SCH (09:01)
[2025-01-07] MEDS ORDERED: HYDROcodone/APAP 7.5-325MG 1 EACH TAB PO PRN (09:01)
[2025-01-07] MEDS: PANTOPRAZOLE 40 MG/10 ML VIAL IV SCH (09:01)
[2025-01-07] MEDS: FOLIC ACID 1 MG TAB PO SCH (09:01)
--- NOTE | 2025-01-07 09:24 | P.CNOR ---
History of Present Illness - [facility] Consult date: 01/07/25 Consult reason: fracture (Right distal femur fracture) History of present illness: Yenifer is a 74 y/o female with a past medical history including A.fib with Eliquis use, alcohol dependence, and anxiety, who presented to the emergency department at [facility] as a transfer from [facility]. She fell in her bathroom early this morning and was unable to get up. Initally, EMS was called but she refused to be taken to the hospital at that time. She continue to have severe pain and was unable to get out of bed. She denies hitting her head. No other injuries reported. The patient is status post right hip hemiarthroplasty on November 07, 2024 in [place]. She did not go to rehab after surgery and returned home. She has not been using a walker or cane lately. Orthopedics was consulted for further evaluation and surgical intervention. Her last dose of Eliquis was either 01/05 or 01/06. Today, she is in severe pain in the right leg. She states the pain medication is not helping. Review of Systems Constitutional: Denies chills, Denies fatigue, Denies fever Cardiovascular: Denies chest pain, Denies shortness of breath Respiratory: Denies cough Musculoskeletal: right: knee pain, knee stiffness, knee swelling Past Medical History Past Medical History: GERD/Reflux, Osteoarthritis (OA) Additional Past Medical History / Comment(s): back pain frequent History of Any Multi-Drug Resistant Organisms: None Reported Past Surgical History: Appendectomy, Breast Surgery Additional Past Surgical History / Comment(s): breast reduction Past Anesthesia/Blood Transfusion Reactions: No Reported Reaction Past Psychological History: Anxiety Smoking Status: Former smoker Past Alcohol Use History: Heavy Past Drug Use History: Marijuana - Past Family History Mother Family Medical History: No Reported History Medications and Allergies Home Medications Medication Instructions Recorded Confirmed Type ALPRAZolam [Xanax] 0.5 mg PO BID PRN 02/17/15 01/07/25 History Sertraline [Zoloft] 100 mg PO DAILY PRN 02/17/15 01/07/25 History Zolpidem Tartrate [Zolpidem 12.5 mg PO HS PRN 05/04/23 01/07/25 History Tartrate ER] Apixaban [Eliquis] 5 mg PO DAILY 01/07/25 01/07/25 History Metoprolol Succinate (ER) [Toprol 50 mg PO DAILY 01/07/25 01/07/25 History Xl] Allergies Allergy/AdvReac Type Severity Reaction Status Date / Time No Known Allergies Allergy Verified 01/07/25 06:54 Physical Examination The patient is an 74 year-old female in no acute distress. She is alert and oriented 3. The patient's head is normocephalic, atraumatic. No pain upon palpation to the cervical spine, no step-offs noted. Exam of the bilateral up per extremities reveal no obvious deformities or wounds. There is bruising to her right dorsal hand. Exam of the left lower extremity reveals no deformity or wounds. No pain upon range of motion of the left leg. Exam of the right lower extremity reveals severe guarding to the entire leg. ROM was not tested today. Thigh is soft and knee effusion present. Calf is soft but moderately tender. She is able to wiggle her toes. Circulatory status is intact. Results Outside x-rays of the right knee and pelvis reveals a displaced distal femur fracture and post right hip hemiarthroplasty. CT of the right leg reveals an oblique distal femur fracture that does not appear to extend into the joint. - Labs Labs: Abnormal Lab Results - Last 24 Hours (Table) 01/07/25 01/07/25 Range/Units 05:41 05:41 WBC 11.8 H (3.8-10.6) k/uL RBC 3.59 L (3.80-5.40) m/uL Hgb 10.7 L (11.4-16.0) gm/dL RDW 16.2 H (11.5-15.5) % Neutrophils # 10.3 H (1.3-7.7) k/uL Chloride 113 H (98-107) mmol/L Carbon Dioxide 21 L (22-30) mmol/L Glucose 137 H (74-99) mg/dL H & H 01/07/25 Range/Units 05:41 Hgb 10.7 L (11.4-16.0) gm/dL Hct 34.1 (34.0-46.0) % Coagulation 01/07/25 Range/Units 05:41 INR 0.9 (<1.2) Result Diagrams: 01/07/25 05:41 01/07/25 05:41 Assessment and Plan (1) Fall Current Visit: Yes Status: Acute Code(s): W19.XXXA - UNSPECIFIED FALL, INITIAL ENCOUNTER SNOMED Code(s): 8561998 (2) Femoral distal fracture Current Visit: Yes Status: Acute Code(s): S72.409A - UNSP FRACTURE OF LOWER END OF UNSP FEMUR, INIT FOR CLOS FX SNOMED Code(s): 402447371 (3) A-fib Current Visit: Yes Status: Acute Code(s): I48.91 - UNSPECIFIED ATRIAL FIBRILLATION SNOMED Code(s): 82397050 (4) Alcohol abuse Current Visit: Yes Status: Acute Code(s): F10.10 - ALCOHOL ABUSE, UNCOMPLICATED SNOMED Code(s): 10130598 (5) Anxiety Current Visit: Yes Status: Acute Code(s): F41.9 - ANXIETY DISORDER, UNSPECIFIED SNOMED Code(s): 48824602 Plan: The clinical and x-ray findings were discussed with the patient and her niece at the bedside in the ED this morning. The case was discussed with Dr. Manuel. Treatment options were discussed and surgical intervention is recommended. We discussed the surgical plan as well as the expected postoperative course. Risks and benefits were reviewed including (but not limited to) the risks of inf ection, bleeding, blood clots, delayed or nonunion, anesthesia-related complications and possible need for additional surgery. Questions were invited and answered. The patient expressed understanding and wishes to proceed with surgery. The patient will be kept on bedrest. Continue PRN pain management. She may eat today. The patient is unclear when her last Eliquis dose was taken, maybe 01/05 or 01/06. Anesthesia would like to wait 3 days ideally after the last dose. She will be scheduled for a right distal femur ORIF on 01/09/2025. She will continue to be optimized for surgery by internal medicine and has been cleared pending her EKG.
--- NOTE | 2025-01-07 10:10 | XR ---
EXAMINATION TYPE: XR hand complete RT, XR wrist limited RT DATE OF EXAM: 01/07/2025 CLINICAL INDICATION: Female, 74 years old with history of right hand swelling and bruising after fall , pain TECHNIQUE: Frontal, lateral and oblique images of the right hand are obtained. 2 views right wrist. COMPARISON: None. FINDINGS: Osseous structures are demineralized. There is no acute displaced fracture evident in the right wrist or hand. [id number] degenerative change at base of first metacarpal and triscaphe j oint. Mild to moderate narrowing throughout the PIP and DIP joints of the phalanges. Peripheral IV ov erlies the radial aspect of the wrist. IMPRESSION: There is no acute displaced fracture in the right wrist or hand. [facility], , 01/07/2025 10:07 AM
--- NOTE | 2025-01-07 10:11 | XR ---
EXAMINATION TYPE: XR shoulder complete RT DATE OF EXAM: 01/07/2025 CLINICAL INDICATION: Female, 74 years old with history of right shoulder/chest pain, pain TECHNIQUE: Three views of the right shoulder are obtained. COMPARISON: None. FINDINGS: Osseous structures are demineralized. There is no acute fracture/dislocation evident in th e right shoulder. Moderate narrowing at the acromioclavicular joint. Overlying clothing or blanket ma terial is present. Glenohumeral joint is preserved. Visualized ribs are intact. IMPRESSION: There is no acute displaced fracture in the right shoulder. [facility], , 01/07/2025 10:09 AM
--- NOTE | 2025-01-07 10:13 | XR ---
EXAMINATION TYPE: XR chest 1V portable DATE OF EXAM: 01/07/2025 CLINICAL INDICATION: Female, 74 years old with history of right shoulder/upper chest pain tender to p alpation, TECHNIQUE: Single frontal view of the chest is obtained. COMPARISON: None FINDINGS: Somewhat low lung volumes. There is no focal air space opacity, pleural effusion, or pneumothorax see n. The cardiac silhouette size is within normal limits. The osseous structures are demineralized. IMPRESSION: No acute cardiopulmonary process. [facility], , 01/07/2025 10:10 AM
[2025-01-07] MEDS: diazePAM 5 MG TAB PO PRN (14:10)
[2025-01-07] MEDS: HYDROmorphone 0.5 MG/0.5 ML SYRINGE IVP PRN (15:15)
[2025-01-07] MEDS: HYDROcodone/APAP 7.5-325MG 1 EACH TAB PO PRN (16:55)
[2025-01-07] MEDS: LORazepam 2 MG/ML INJ IV PRN (19:53)
[2025-01-08 08:25] LABS: HCT 30.5 % (37.2-46.3); HGB 9.8 g/dL (12.0-15.0); MCH 30.8 pg (27.0-32.0); MCHC 32.1 g/dL (32.0-37.0); MCV 95.9 FL (80.0-97.0); Mean Platelet Volume 10.6 FL (9.5-12.2); NRBC Per 100 WBC 0 X 10*3/uL (0.00-0.01); Platelet Count 265 X 10*3/uL (140-440); RBC 3.18 X 10*6/uL (4.10-5.20); RDW 16.6 % (11.5-14.5); WBC 7.93 X 10*3/uL (4.50-10.00)
[2025-01-08 08:35] LABS: ALT 20 U/L (8-44); AST 24 U/L (13-35); Albumin 3.5 g/dL (3.8-4.9); Albumin/Globulin Ratio 1.75 Ratio (1.60-3.17); Alkaline Phosphatase 103 U/L (41-126); BUN/Creat Ratio 17.62 Ratio (12.00-20.00); Blood Urea Nitrogen 14.1 mg/dL (9.0-27.0); Calcium 8.8 mg/dL (8.7-10.3); Carbon Dioxide 22.5 mmol/L (21.6-31.8); Chloride 106 mmol/L (96-109); Glucose 151 mg/dL (70-110); Potassium 3.8 mmol/L (3.5-5.5); Sodium 138 mmol/L (135-145); Total Bilirubin 0.3 mg/dL (0.3-1.2); Total Protein 5.5 g/dL (6.2-8.2)
[2025-01-08] MEDS ORDERED: LORazepam 1 MG/0.5 ML VIAL IV PRN (09:00)
[2025-01-08] MEDS: THIAMINE 100 MG TAB PO SCH (09:49)
--- NOTE | 2025-01-08 12:10 | P.PN ---
Subjective Progress Note Date: 01/08/25 Hospital Course: Patient is a very pleasant 74-year-old female with a past medical history of daily alcohol abuse, anxiety, cannabinoid use disorder, and atrial fibrillation on anticoagulation with Eliquis. She presented to our facility as a transfer from [facility] after falling in the bathroom resulting in injury to her right leg. Per ED documentation, EMS was initially called to home but patient refused transfer but later was unable to ambulate due to continued and worsening pain in her right lower extremity so EMS was called back out to the residence and she was taken to [facility]. Patient denied hitting her head or having any loss of consciousness saying she fell directly onto her right knee and leg and that is her only injury. At [facility] patient was found to have a fractured right femur and was transferred to our facility for admission and treatment by orthopedic surgery team. On arrival to our facility, patient underwent evaluation in the emergency department. Vital signs upon arr ival show blood pressure 178/85, heart rate 109, respiratory, temp 98.0 F, and SpO2 of 100% on room air. Labs completed and reviewed. CBC showing leukocytosis with WBC count of 11.8 and hemoglobin of 10.7. Coagulation profile normal findings. BMP showing mild non-anion gap metabolic acidosis with chloride of 113, bicarb of 21, and anion gap of 8. Blood glucose was 137. CT right lower extremity without IV contrast was completed showing an obliquely oriented distal femur fracture with apex angulation of the fracture fragments and previous right hip arthroplasty in place. Per request of orthopedic surgery team patient was admitted under our services and orthopedic surgery on consult. Patient seen and fully evaluated at bedside. She currently reports pain to right leg/thigh and denies any other complaints or injuries. Patient does report mild point tenderness to right upper chest near her right shoulder, no obvious bruise or deformity noted and patient has noted swelling and bruising of right hand. Patient reports she fell onto her bottom and states it is possible she hit her right side of chest/shoulder on the toilet and does admit to pain when asked in her right hand. Patient again denies hitting her head or having any loss of consciousness, headache, lightheadedness, dizziness, chest pain other than point tenderness to right upper chest near shoulder, palpitations, shortness of breath, nausea, vomiting, or experiencing any numbness in her extremities. Patient does admit to drinking 2 beers and 2 shots of vodka daily. Per documentation in chart patient was found initially by EMS and niece with an empty bottle of vodka next to her. Patient also admits to cannabinoid use with Gummies nightly. Physical exam: Patient seen and fully evaluated at bedside this morning. She reports her pain is currently controlled with current pain medication regimen and as long as she does not move. She is awaiting to be taken down to the OR. Per surgery tech either later today or tomorrow awaiting clearance from anesthesia as patient last had Eliquis on the evening of 01/05/2025. Vital signs reviewed and stable. General: Nontoxic, no distress and appears stated age. Derm: Skin warm and dry, normal coloration for ethnicity. Head: Atraumatic, normocephalic and symmetric. No obvious injury or bruising noted. Eyes: EOM's intact, no lid lag, and anicteric sclera Mouth: no lip lesions, mucus membranes moist Cardiovascular: Tachycardic rate with regular rhythm, normal S1S2, no murmur, positive posterior tibial pulses bilaterally, and cap refill < 2 seconds. Lungs: Respirations even, regular, and unlabored on room air. Lungs CTA bilaterally, no rhonchi, no rales, no wheezing, and no accessory muscle usage. Abdominal: soft, nontender to palpation, no guarding, no appreciable organomegaly Ext: No gross muscle atrophy, no edema, no contractures, right lower extremity elevated on pillows below knee. No obvious deformity noted of right lower extremity, mild swelling to right lower thigh no acute bruising seen. Patient with moderate swelling and bruising of right hand/wrist Neuro: Speech clear, face symmetrical and CN II-XII grossly intact with no noted focal neuro deficits Psych: Alert and oriented to person, place, time, and situation. Appropriate and pleasant affect. Assessment and Plan of Care: Preoperative Clearance Right obliquely oriented distal femur fracture -METS score >4 -NSQIP surgical risk score was calculated. Patient had a below average risk for serious complication at 4.3% with average risk being 8.5%, below average risk of cardiac complication at 0.3% with average risk being 1.2% below average risk of at 0.4% with average risk being 3.3%. -Preoperative EKG completed showing sinus tachycardia at [address] depression in inferior leads II, III, and aVF, no previous EKGs available for comparison. Patient denies any cardiac complaints. To remain on continuous telemetry monitoring. -Patient is at an increased risk to undergo any surgical procedure secondary to daily alcohol use/abuse along with history of atrial fibrillation on anticoagulant with last reports of taking Eliquis being on the evening of 01/05/25. However, as stated above, METS and NSQIP score shows pt at a below average risk and she is currently medically optimized to undergo planned ORIF of right hip with placement of plate versus retrograde nailing as scheduled with Dr. Rice. Recommend patient remain on continuous telemetry monitoring preoperatively, intraoperatively, and postoperatively. Patient to resume Eliquis for treatment of her atrial fibrillation after completion of surgical procedure and cleared by orthopedic surgery team to resume. Right shoulder/upper chest pain and point tenderness Right hand pain/bruising/swelling -Order placed for x-ray right hand and wrist as well as x-ray chest and right shoulder. Daily alcohol use/abuse -Order placed for monitoring of CIWA scores and patient to be medicated with Ativan 0.5 mg every 4 hours as needed for CIWA score of 4-5, Ativan 1 mg every 4 hours for CIWA score of 6-7, Ativan 2 mg every 3 hours CIWA score of 8-9, and Ativan 2 mg every 2 hours forr CIWA score of 10 or greater. -Continuous IV hydration. -Thiamine 100 mg daily, and Multivitamin daily, and Folate 1 mg daily -Seizure, fall, aspiration, and elopement precautions in place. -Continued close monitoring of electrolytes and replace as needed. -Telemetry monitoring. Normocytic anemia -Likely acute on chronic chronic secondary to daily alcohol abuse, however unknown baseline. Previous documentation in chart shows hemoglobin of 9.4 in 2022. -Patient is also on home anticoagulant with Eliquis, currently held for pending surgical procedure. -Continue close monitoring with repeat CBC and transfuse as indicated for hemoglobin less than 7. Paroxysmal Atrial fibrillation -Eliquis held at this time secondary to impending surgical procedure, patient to continue with metoprolol 25 mg twice daily. Anxiety with depression -Continue home medication regimen with sertraline 100 mg daily as needed for anxiety. Data and imaging reviewed: Chest x-ray negative for acute cardiopulmonary process showing demineralization of osseous structures but no acute fracture reported. X-ray right shoulder completed negative for acute fracture showing moderate narrowing at the acromioclavicular joint. X-ray right wrist and hand completed negative for acute displaced fracture revealing mild to moderate degenerative changes in the first metacarpal and triscaphe joint with mild to moderate narrowing to the PIP and DIP joints of the phalanges. Vital signs reviewed. Blood pressure 149/69, heart rate 107, respiratory rate 16, temp 97.9 F, and SpO2 100% on room air. Morning labs reviewed. CBC showing hemoglobin of 9.8. BMP unremarkable. Blood glucose was slightly elevated at 151. Magnesium 2.0. Liver profile unremarkable with exception of low total protein of 5.5 and albumin of 3.5. CODE STATUS: Full code DVT prophylaxis: DVT prophylaxis as per orthopedic surgery team, recommend resumption of Eliquis once medically cleared by Ortho to resume. Discussed with: Patient, RN, ED physician, and patient's family at bedside. Anticipated discharge date: Pending clinical course Anticipated discharge place: Home with home care versus rehab Patient was seen independently by Nurse Practitioner. This document was prepared using [employer] dictation software. Please allow for errors in sheet metal shop helper while rare they do occur. Matti Shields NP rendered care for this patient independently, reviewed the findings and plan as documented in the note above and agree with plan. I did not physically speak with or examine the patient on this date. Objective - Vital Signs Vital signs: Vital Signs Temp 97.9 F 01/08/25 06:59 Pulse 107 H 01/08/25 06:59 Resp 16 01/08/25 06:59 BP 149/69 01/08/25 06:59 Pulse Ox 100 01/08/25 06:59 FiO2 Intake & Output 01/07/25 01/08/25 01/08/25 18:59 06:59 18:59 Intake Total 500 Output Total 1300 Balance -800 Weight 58.967 kg Intake: Oral 500 Output: Urine 1300 Other: Voiding Method Indwelling Catheter - Labs CBC & Chem 7: 01/08/25 03:40 01/08/25 03:40 Labs: Abnormal Lab Results - Last 24 Hours (Table) 01/08/25 01/08/25 Range/Units 03:40 03:40 RBC 3.18 L (4.10-5.20) X 10*6/uL Hgb 9.8 L (12.0-15.0) g/dL Hct 30.5 L (37.2-46.3) % RDW 16.6 H (11.5-14.5) % Glucose 151 H (70-110) mg/dL Total Protein 5.5 L (6.2-8.2) g/dL Albumin 3.5 L (3.8-4.9) g/dL
--- NOTE | 2025-01-08 20:55 | P.PN ---
Progress Note - Text Patient presented to the hospital as a transfer when my partner, Dr. Rice was acetaldehyde converter operator. I was asked to surgically manage. I met with the patient tonight. I recommended ORIF of the distal femur with possible nail-plate combo. We discussed the potential risks and complications. She understands her elevated risk due to her chronic alcohol use and recent hip fracture (10/2024 managed in [place]). We will plan for surgery tomorrow afternoon.
[2025-01-08] MEDS: LORazepam 1 MG/0.5 ML VIAL IV PRN (23:13)
[2025-01-09] MEDS: LORazepam 1 MG/0.5 ML VIAL IV PRN (03:46)
[2025-01-09 08:33] LABS: ALT 17 U/L (8-44); AST 22 U/L (13-35); Albumin 3.2 g/dL (3.8-4.9); Albumin/Globulin Ratio 1.45 Ratio (1.60-3.17); Alkaline Phosphatase 90 U/L (41-126); BUN/Creat Ratio 14.62 Ratio (12.00-20.00); Blood Urea Nitrogen 11.7 mg/dL (9.0-27.0); Calcium 8.9 mg/dL (8.7-10.3); Carbon Dioxide 25.5 mmol/L (21.6-31.8); Chloride 108 mmol/L (96-109); Globulin 2.2 g/dL (1.6-3.3); Glucose 124 mg/dL (70-110); Magnesium 2.3 mg/dL (1.5-2.4); Potassium 3.8 mmol/L (3.5-5.5); Sodium 141 mmol/L (135-145); Total Bilirubin 0.2 mg/dL (0.3-1.2); Total Protein 5.4 g/dL (6.2-8.2)
[2025-01-09 08:44] LABS: HCT 29.3 % (37.2-46.3); HGB 9.1 g/dL (12.0-15.0); MCHC 31.1 g/dL (32.0-37.0); MCV 96.7 FL (80.0-97.0); Mean Platelet Volume 10.7 FL (9.5-12.2); NRBC Per 100 WBC 0 X 10*3/uL (0.00-0.01); Platelet Count 236 X 10*3/uL (140-440); RBC 3.03 X 10*6/uL (4.10-5.20); RDW 16.1 % (11.5-14.5); WBC 6.44 X 10*3/uL (4.50-10.00)
--- NOTE | 2025-01-09 12:54 | P.PN ---
Subjective Progress Note Date: 01/09/25 Hospital Course: Patient is a very pleasant 74-year-old female with a past medical history of daily alcohol abuse, anxiety, cannabinoid use disorder, and atrial fibrillation on anticoagulation with Eliquis. She presented to our facility as a transfer from [facility] after falling in the bathroom resulting in injury to her right leg. Per ED documentation, EMS was initially called to home but patient refused transfer but later was unable to ambulate due to continued and worsening pain in her right lower extremity so EMS was called back out to the residence and she was taken to [facility]. Patient denied hitting her head or having any loss of consciousness saying she fell directly onto her right knee and leg and that is her only injury. At [facility] patient was found to have a fractured right femur and was transferred to our facility for admission and treatment by orthopedic surgery team. On arrival to our facility, patient underwent evaluation in the emergency department. Vital signs upon arr ival show blood pressure 178/85, heart rate 109, respiratory, temp 98.0 F, and SpO2 of 100% on room air. Labs completed and reviewed. CBC showing leukocytosis with WBC count of 11.8 and hemoglobin of 10.7. Coagulation profile normal findings. BMP showing mild non-anion gap metabolic acidosis with chloride of 113, bicarb of 21, and anion gap of 8. Blood glucose was 137. CT right lower extremity without IV contrast was completed showing an obliquely oriented distal femur fracture with apex angulation of the fracture fragments and previous right hip arthroplasty in place. Per request of orthopedic surgery team patient was admitted under our services and orthopedic surgery on consult. Chest x-ray negative for acute cardiopulmonary process showing demineralization of osseous structures but no acute fracture reported. X-ray right shoulder completed negative for acute fracture showing moderate narrowing at the acromioclavicular joint. X-ray right wrist and hand completed negative for acute displaced fracture revealing mild to moderate degenerative changes in the first metacarpal and triscaphe joint with mild to moderate narrowing to the PIP and DIP joints of the phalanges Physical exam: Patient seen and fully evaluated at bedside this morning. She reports her pain is remains controlled with current pain medication regimen and as long as she does not move. She is awaiting to be taken down to the OR later this afternoon. Vital signs reviewed and stable. General: Nontoxic, no distress and appears stated age. Derm: Skin warm and dry, normal coloration for ethnicity. Head: Atraumatic, normocephalic and symmetric. No obvious injury or bruising noted. Eyes: EOM's intact, no lid lag, and anicteric sclera Mouth: no lip lesions, mucus membranes moist Cardiovascular: Tachycardic rate with regular rhythm, normal S1S2, no murmur, positive posterior tibial pulses bilaterally, and cap refill < 2 seconds. Lungs: Respirations even, regular, and unlabored on room air. Lungs CTA bilater ally, no rhonchi, no rales, no wheezing, and no accessory muscle usage. Abdominal: soft, nontender to palpation, no guarding, no appreciable organomegaly Ext: No gross muscle atrophy, no edema, no contractures, right lower extremity elevated on pillows below knee. No obvious deformity noted of right lower extremity, mild swelling to right lower thigh no acute bruising seen. Patient with moderate bruising of right hand/wrist Neuro: Speech clear, face symmetrical and CN II-XII grossly intact with no noted focal neuro deficits Psych: Alert and oriented to person, place, time, and situation. Appropriate and pleasant affect. Assessment and Plan of Care: Preoperative Clearance Right obliquely oriented distal femur fracture -METS score >4 -NSQIP surgical risk score was calculated. Patient had a below average risk for serious complication at 4.3% with average risk being 8.5%, below average risk of cardiac complication at 0.3% with average risk being 1.2% below average risk of at 0.4% with average risk being 3.3%. -Preoperative EKG completed showing sinus tachycardia at [address] depression in inferior leads II, III, and aVF, no previous EKGs available for comparison. Patient denies any cardiac complaints. To remain on continuous telemetry monitoring. -Patient is at an increased risk to undergo any surgical procedure secondary to daily alcohol use/abuse along with history of atrial fibrillation on anticoagulant with last reports of taking Eliquis being on the evening of 01/05/25. However, as stated above, METS and NSQIP score shows pt at a below average risk and she is currently medically optimized to undergo planned ORIF of right hip with placement of plate versus retrograde nailing as scheduled with Dr. Rice. Recommend patient remain on continuous telemetry monitoring preoperatively, intraoperatively, and postoperatively. Patient to resume Eliquis for treatment of her atrial fibrillation after completion of surgical procedure and cleared by orthopedic surgery team to resume. Right shoulder/upper chest pain and point tenderness Right hand pain/bruising/swelling -Order placed for x-ray right hand and wrist as well as x-ray chest and right shoulder. Daily alcohol use/abuse -Continue monitoring of CIWA scores and patient to be medicated with Ativan 0.5 mg every 4 hours as needed for CIWA score of 4-5, Ativan 1 mg every 4 hours for CIWA score of 6-7, Ativan 2 mg every 3 hours CIWA score of 8-9, and Ativan 2 mg every 2 hours forr CIWA score of 10 or greater. -Continuous IV hydration. -Thiamine 100 mg daily, and Multivitamin daily, and Folate 1 mg daily -Seizure, fall, aspiration, and elopement precautions in place. -Continued close monitoring of electrolytes and replace as needed. -Telemetry monitoring. Normocytic anemia -Likely acute on chronic chronic secondary to daily alcohol abuse, however unknown baseline. Previous documentation in chart shows hemoglobin of 9.4 in 2022. -Patient is also on home anticoagulant with Eliquis, currently held for pending surgical procedure. -Continue close monitoring with repeat CBC and transfuse as indicated for hemoglobin less than 7. Paroxysmal Atrial fibrillation -Eliquis held at this time secondary to impending surgical procedure, patient to continue with metoprolol 25 mg twice daily. Anxiety with depression -Continue home medication regimen with sertraline 100 mg daily as needed for anxiety. Data and imaging reviewed: Vital signs reviewed. Blood pressure 125/68, heart rate 105, respiratory rate 18, temp 97.4 F, and SpO2 100% on room air Morning labs reviewed. CBC showing hemoglobin of 9.1. BMP unremarkable. Blood glucose was slightly elevated at 124. Magnesium 2.3. Liver profile unremarkable with exception of low total protein of 5.4 and albumin of 3.2. CODE STATUS: Full code DVT prophylaxis: DVT prophylaxis as per orthopedic surgery team, recommend resumption of Eliquis once medically cleared by Ortho to resume. Anticipated discharge date: Pending clinical course Anticipated discharge place: Home with home care versus rehab Patient was seen independently by Nurse Practitioner. This document was prepared using [employer] dictation software. Please allow for errors in harness mender while rare they do occur. Matti Alyson, FORGING PRESS SETTER UP rendered care for this patient independently, reviewed the findings and plan as documented in the note above and agree with plan. I did not physically speak with or examine the patient on this date. Objective - Vital Signs Vital signs: Vital Signs Temp 97.4 F L 01/09/25 07:04 Pulse 105 H 01/09/25 07:04 Resp 18 01/09/25 07:04 BP 125/68 01/09/25 07:04 Pulse Ox 100 01/09/25 07:04 FiO2 Intake & Output 01/08/25 01/09/25 01/09/25 18:59 06:59 18:59 Intake Total 500 Output Total 1000 700 Balance -1000 -200 Intake: Oral 500 Output: Urine 1000 700 Other: Voiding Method Indwelling Catheter Indwelling Catheter - Labs CBC & Chem 7: 01/09/25 04:51 01/09/25 04:51 Labs: Abnormal Lab Results - Last 24 Hours (Table) 01/09/25 01/09/25 Range/Units 04:51 04:51 RBC 3.03 L (4.10-5.20) X 10*6/uL Hgb 9.1 L (12.0-15.0) g/dL Hct 29.3 L (37.2-46.3) % MCHC 31.1 L (32.0-37.0) g/dL RDW 16.1 H (11.5-14.5) % Glucose 124 H (70-110) mg/dL Total Bilirubin 0.2 L (0.3-1.2) mg/dL Total Protein 5.4 L (6.2-8.2) g/dL Albumin 3.2 L (3.8-4.9) g/dL Albumin/Globulin Ratio 1.45 L (1.60-3.17) Ratio
[2025-01-09] MEDS: IV FLUID CONTINUATION 1,000 ML IV ONE (15:19)
[2025-01-09] MEDS: DEXAMETHASONE SOD PHOSPHATE 4 MG/ML 1 ML VIAL IVP STA (15:56)
[2025-01-09] MEDS: LACTATED RINGERS 1,000 ML BAG IV STA (15:56)
[2025-01-09] MEDS: ONDANSETRON 4 MG/2 ML VIAL IVP PRN (15:56)
[2025-01-09] MEDS: SODIUM CHLORIDE 0.9% 50 ML with ceFAZolin 2,000 MG IV ONE (16:58)
[2025-01-09] MEDS: LACTATED RINGERS 1,000 ML IV ONE (18:07)
--- NOTE | 2025-01-09 19:21 | XR ---
EXAMINATION TYPE: XR femur RT, FL guidance operating room Intraoperative/procedural fluoroscopic serv ices were provided. CLINICAL INDICATION:Female, 74 years old with history of DISTAL FEMUR FRACTURE RT; , [facility] FINDINGS: Multiple fluoroscopic images demonstrating ORIF right distal femur fracture with fixation plate. Righ t hip arthroplasty changes. No radiographic evidence for complication. Total fluoroscopy time is 80 seconds. DAP: 2.4478 Gycm2 Please see the operative/procedural note for further details. [facility], , 01/09/2025 7:19 PM
--- NOTE | 2025-01-09 19:48 | P.OP ---
Date of Procedure: 01/09/25 Preoperative Diagnosis: 1. Right extra-articular supracondylar distal femur fracture 2. Right femoral neck fracture status post hip hemiarthroplasty October 2024 3. Current everyday alcohol abuse 4. Normocytic anemia 5. Paroxysmal atrial fibrillation 6. Anxiety with depression Postoperative Diagnosis: Same Procedure(s) Performed: Open reduction and internal fixation right supracondylar distal femur fracture Anesthesia: ARGELIA Surgeon: Darwin Manuel Mining Technician #1: Raúl Rapp Mining Technician #2: Michel Adamson Estimated Blood Loss (ml): 200 IV fluids (ml): 800 Pathology: none sent Condition: stable Disposition: PACU Indications for Procedure: The patient is a very pleasant 74-year-old female with multiple medical problems including being a current everyday drinker, paroxysmal atrial fibrillation, and recent right hip fracture who sustained a ground-level fall resulting in a right distal femur fracture. The patient was initially seen at an outside facility and transferred to our hospital. She was found to have an extra-articular distal femur fracture both on plain films and CT. She was admitted to internal medicine due to her medical issues. I was asked by my partner Dr. Rice to assess and manage the patient surgically. After review of the patient's imaging I recommended an attempt at open reduction internal fixation. I met with the patient preoperatively discussed the procedure and the potential risks and complications. She understands that she is an elevated risk of having a complication due to her recent hip fracture, alcohol abuse, and overall frail state of health. Risks discussed with the patient include but are certainly not limited to risks from anesthesia, superficial infection, deep infection, delayed wound healing, fracture nonunion, fracture malunion, loss of fixation, avascular necrosis, posttraumatic arthritis, stiffness, damage to blood vessels or nerves, symptomatic hardware, DVT, PE, failure to thrive, acute coronary event, need for further surgery including hardware removal and conversion to arthroplasty, and possibly loss of life or limb. The patient voiced her understanding of these potential complications while also acknowledging that other less common complications are possible. She provided both verbal and written consent to go forward with surgery. Description of Procedure: The patient is identified in preoperative holding and the correct right leg was marked with my initials. I reviewed the consent form with the patient and her friend and all of their questions were answered. The patient was then brought back to the operating room by anesthesia. She was positioned on the gurney where general anesthetic and preoperative antibiotics were given. The patient was then carefully transferred to the OR table. A bump was placed under the right buttock internally rotating the leg to neutral. The contralateral left leg was secured to the OR table with foam and tape. A bone foam ramp was placed under the right leg to facilitate imaging. Nonsterile drapes were used to drape out the right leg. The right leg was then prepped and draped in the standard sterile fashion. Prior to starting surgery a timeout was performed identifying the correct patient, operative extremity, and procedure. I began by making a straight lateral longitudinal incision over the thigh starting and that the and extending proximally to the incision over her prior hip fracture scar. Skin incision was made with a scalpel and dissection was carried down carefully through the subcutaneous tissue with electrocautery. The IT band was incised longitudinally in line with the skin incision. I carefully elevated the vastus lateralis off of the intermuscular septum down to the level of the femur. Perforating vessels were controlled with bipolar sealant. The fracture was identified distally and dissection was used to carefully free up the fracture to allow reduction. Consolidating hematoma and interposed tissue was removed. Posteriorly there was a large posterolateral fragment in the distal segment. Anteriorly there was comminution at the level of the trochlea. There did not appear to be any other intra-articular extension and the fracture appeared to be 1 large distal segment. Using longitudinal traction and rotation I was able to dominguez the posterolateral spike and nicely reducing the fracture. The reduction was held with a large [place] clamp which was strategically placed to allow passage of a plate. Fluoroscopic images were taken to assess reduction. At this point a precontoured locking femoral plate was selected and sized to the patient's anatomy. The plate was slid from distal to proximal and once its position was verified with fluoroscopy K wires were used proximally and distally to center of the plate on the femur. Fluoroscopy was used to verify the position of the plate on orthogonal views. Nonlocking screws were then placed proximally and distally nicely bringing the plate down to bone. I then placed locking screws distally in the distal articular segment. The most distal nonlocking screw was replaced with a locking screw. I then placed an additional 2 locking screws in the shaft. I was able to angle 2 locking screws proximally above the plate anteriorly. Final fluoroscopic images were taken showing acceptable position of the hardware and anatomic reduction of the fracture. The wound was then thoroughly irrigated and closed in layers and a sterile dressing was applied. At the conclusion of the procedure the patient received 1 g of tranexamic acid. After the drapes were taken down Webril and a large Jason wrap were placed from the proximal thigh distally to the foot. The knee was placed in a knee immobilizer. The patient's foot was warm and well-perfused. She was then extubated and brought to recovery having tolerated the procedure well. Michel Adamson PA-C was required as a skilled assistant librarian due to the complexity of surgery for patient positioning, draping, exposure, retraction, closure of wound, and application of dressing. Plan: The patient should remain strictly nonweightbearing on her right leg. Leave surgical dressing in place. She will be in a knee immobilizer for 48 hours after which she can be transitioned to a hinged knee brace. 2 doses of postoperative antibiotics. She can resume her anticoagulation tomorrow. She will likely need discharge to rehab.
[2025-01-09] MEDS ORDERED: NALOXONE 0.4 MG/ML 1 ML VIAL IV PRN (19:51)
[2025-01-09] MEDS ORDERED: MAGNESIUM HYDROXIDE 2,400 MG/30 ML CUP PO PRN (19:51)
[2025-01-09] MEDS ORDERED: HYDROmorphone 0.5 MG/0.5 ML SYRINGE IVP PRN ×2 (19:51)
[2025-01-09] MEDS ORDERED: HYDROcodone/APAP 5-325MG 1 EACH TAB PO PRN (19:51)
[2025-01-09] MEDS: SODIUM CHLORIDE 0.9% 1,000 ML IV SCH (20:48)
[2025-01-09] MEDS: HYDROcodone/APAP 10-325MG 1 EACH TAB PO PRN (20:49)
[2025-01-09] MEDS: SENNOSIDES-DOCUSATE SODIUM 1 EACH TAB PO SCH (20:49)
[2025-01-09] MEDS: PHENAZOPYRIDINE 200 MG TAB PO SCH (21:23)
[2025-01-09] MEDS: LORazepam 0.5 MG TAB PO PRN (22:35)
[2025-01-09] MEDS: HYDROmorphone 0.5 MG/0.5 ML SYRINGE IVP PRN (23:34)
[2025-01-09] MEDS: SERTRALINE 100 MG TAB PO PRN (23:56)
[2025-01-10 02:09] LABS: Basophils # (A) 0.01 X 10*3/uL (0.00-0.10); Basophils % (A) 0.1 %; Eosinophils # (A) 0 X 10*3/uL (0.04-0.35); Eosinophils % (A) 0 %; HCT 29.4 % (37.2-46.3); Lymphocytes # (A) 0.47 X 10*3/uL (0.90-5.00); MCH 30.1 pg (27.0-32.0); MCHC 30.6 g/dL (32.0-37.0); MCV 98.3 FL (80.0-97.0); Mean Platelet Volume 10.9 FL (9.5-12.2); Monocytes # (A) 0.17 X 10*3/uL (0.20-1.00); Monocytes % (A) 1.8 %; NRBC Per 100 WBC 0 X 10*3/uL (0.00-0.01); Neutrophils # (A) 8.71 X 10*3/uL (1.80-7.70); Neutrophils % (A) 92.7 %; Platelet Count 287 X 10*3/uL (140-440); RBC 2.99 X 10*6/uL (4.10-5.20)
[2025-01-10] MEDS: LORazepam 1 MG/0.5 ML VIAL IV PRN (03:18)
[2025-01-10] MEDS: chlordiazePOXIDE 25 MG CAP PO STA (05:56)
[2025-01-10 08:45] LABS: MCH 30.8 pg (27.0-32.0); MCV 96.2 FL (80.0-97.0); Mean Platelet Volume 10.4 FL (9.5-12.2); NRBC Per 100 WBC 0 X 10*3/uL (0.00-0.01); Platelet Count 304 X 10*3/uL (140-440); RDW 16.2 % (11.5-14.5); WBC 6.67 X 10*3/uL (4.50-10.00)
[2025-01-10 08:53] LABS: ALT 17 U/L (8-44); AST 28 U/L (13-35); Albumin 3.1 g/dL (3.8-4.9); Albumin/Globulin Ratio 1.48 Ratio (1.60-3.17); Alkaline Phosphatase 81 U/L (41-126); BUN/Creat Ratio 14.12 Ratio (12.00-20.00); Blood Urea Nitrogen 11.3 mg/dL (9.0-27.0); Calcium 8.4 mg/dL (8.7-10.3); Carbon Dioxide 23.6 mmol/L (21.6-31.8); Chloride 104 mmol/L (96-109); Globulin 2.1 g/dL (1.6-3.3); Glucose 115 mg/dL (70-110); Magnesium 1.7 mg/dL (1.5-2.4); Potassium 3.7 mmol/L (3.5-5.5); Sodium 140 mmol/L (135-145); Total Bilirubin 0.3 mg/dL (0.3-1.2); Total Protein 5.2 g/dL (6.2-8.2)
--- NOTE | 2025-01-10 09:59 | P.PN ---
Subjective No acute events overnight. The patient is complaining of pain in her right thigh. Denies chest pain or shortness of breath. Objective - Vital Signs Vital signs: Vital Signs Temp 97.8 F 01/10/25 07:28 Pulse 136 H 01/10/25 07:28 Resp 20 01/10/25 07:28 BP 149/70 01/10/25 07:28 Pulse Ox 100 01/10/25 07:28 FiO2 Intake & Output 01/09/25 01/10/25 01/10/25 18:59 06:59 18:59 Intake Total 1170 500 Output Total 400 300 750 Balance 770 200 -750 Intake: IV 1170 250 Invasive Line 2 20 Oral 250 Output: Urine 400 100 750 Estimated Blood Loss 200 Other: Voiding Method Indwelling Catheter Indwelling Catheter Indwelling Catheter # Voids 700 - Exam Patient is sitting up at bedside in the chair. There is a knee immobilizer and Jason wrap on the right leg. The tips of her toes are warm and well-perfused with brisk capillary refill. She is able to actively move her toes up and down. Sensation is intact to light touch in her exposed toes. - Labs CBC & Chem 7: 01/10/25 05:10 01/10/25 05:10 Labs: Abnormal Lab Results - Last 24 Hours (Table) 01/09/25 01/10/25 01/10/25 Range/Units 20:43 05:10 05:10 RBC 2.99 L 2.60 L (4.10-5.20) X 10*6/uL Hgb 9.0 L 8.0 L (12.0-15.0) g/dL Hct 29.4 L 25.0 L (37.2-46.3) % MCV 98.3 H (80.0-97.0) FL MCHC 30.6 L (32.0-37.0) g/dL RDW 16.0 H 16.2 H (11.5-14.5) % Neutrophils # 8.71 H (1.80-7.70) X 10*3/uL Lymphocytes # 0.47 L (0.90-5.00) X 10*3/uL Monocytes # 0.17 L (0.20-1.00) X 10*3/uL Eosinophils # 0 L (0.04-0.35) X 10*3/uL Anion Gap 12.40 H (4.00-12.00) mmol/L Glucose 115 H (70-110) mg/dL Calcium 8.4 L (8.7-10.3) mg/dL Total Protein 5.2 L (6.2-8.2) g/dL Albumin 3.1 L (3.8-4.9) g/dL Albumin/Globulin Ratio 1.48 L (1.60-3.17) Ratio Assessment and Plan Assessment: Postop day #1 status post open reduction internal fixation right supracondylar distal femur fracture Current everyday alcohol use Right hip hemiarthroplasty for displaced femoral neck fracture October 2024 at outside facility Atrial fibrillation on Eliquis Plan: 1. Strict nonweightbearing right lower extremity 2. Leave knee immobilizer in place. A hinged knee brace has been ordered. W david this is delivered the Jason wrap can be removed and the hinged knee brace placed 3. 2 doses postoperative antibiotics 4. Okay to resume Eliquis today 5. Discharge planning
[2025-01-10] MEDS: APIXABAN 5 MG TAB PO SCH (10:02)
[2025-01-10] MEDS: MAGNESIUM OXIDE 400 MG TAB PO STA (10:41)
--- NOTE | 2025-01-10 13:21 | P.PN ---
Subjective Progress Note Date: 01/10/25 Hospital Course: Patient is a very pleasant 74-year-old female with a past medical history of daily alcohol abuse, anxiety, cannabinoid use disorder, and atrial fibrillation on anticoagulation with Eliquis. She presented to our facility as a transfer from [facility] after falling in the bathroom resulting in injury to her right leg. Per ED documentation, EMS was initially called to home but patient refused transfer but later was unable to ambulate due to continued and worsening pain in her right lower extremity so EMS was called back out to the residence and she was taken to [facility]. Patient denied hitting her head or having any loss of consciousness saying she fell directly onto her right knee and leg and that is her only injury. At [facility] patient was found to have a fractured right femur and was transferred to our facility for admission and treatment by orthopedic surgery team. On arrival to our facility, patient underwent evaluation in the emergency department. Vital signs upon arr ival show blood pressure 178/85, heart rate 109, respiratory, temp 98.0 F, and SpO2 of 100% on room air. Labs completed and reviewed. CBC showing leukocytosis with WBC count of 11.8 and hemoglobin of 10.7. Coagulation profile normal findings. BMP showing mild non-anion gap metabolic acidosis with chloride of 113, bicarb of 21, and anion gap of 8. Blood glucose was 137. CT right lower extremity without IV contrast was completed showing an obliquely oriented distal femur fracture with apex angulation of the fracture fragments and previous right hip arthroplasty in place. Per request of orthopedic surgery team patient was admitted under our services and orthopedic surgery on consult. Chest x-ray negative for acute cardiopulmonary process showing demineralization of osseous structures but no acute fracture reported. X-ray right shoulder completed negative for acute fracture showing moderate narrowing at the acromioclavicular joint. X-ray right wrist and hand completed negative for acute displaced fracture revealing mild to moderate degenerative changes in the first metacarpal and triscaphe joint with mild to moderate narrowing to the PIP and DIP joints of the phalanges. 01/09/2025 patient underwent open reduction internal fixation of right supracondylar distal femur fracture with Dr. Manuel. Physical exam: Patient seen and fully evaluated at bedside this morning. She is postoperative day 1 status post ORIF of right femur. Currently reports minimal to moderate pain but states is a different type of pain today than before surgery. She reports pain is better controlled compared to yesterday but she remains uncomfortable. She denies having any numbness or tingling. Denies having any headache, lightheadedness, dizziness, chest pain, palpitations, shortness of breath, or any other complaints at this time. Godinez catheter remains in place. Vital signs reviewed and stable. General: Nontoxic, no distress and appears stated age. Derm: Skin warm and dry, normal coloration for ethnicity.Patient with moderate bruising of right hand/wrist Head: Atraumatic, normocephalic and symmetric. No obvious injury or bruising noted. Eyes: EOM's intact, no lid lag, and anicteric sclera Mouth: no lip lesions, mucus membranes moist Cardiovascular: Tachycardic rate with regular rhythm, normal S1S2, no murmur, positive posterior tibial pulses bilaterally, and cap refill < 2 seconds. Lungs: Respirations even, regular, and unlabored on room air. Lungs CTA bilaterally, no rhonchi, no rales, no wheezing, and no accessory muscle usage. Abdominal: soft, nontender to palpation, no guarding, no appreciable organomegaly Ext: No gross muscle atrophy, no edema, no contractures, right leg with knee immobilizer in place. Neuro: Speech clear, face symmetrical and CN II-XII grossly intact with no noted focal neuro deficits Psych: Alert and oriented to person, place, time, and situation. Appropriate and pleasant affect. Assessment and Plan of Care: Status post open reduction and internal fixation of right supracondylar distal femur fracture Right obliquely oriented distal femur fracture -Management per primary admitting orthopedic surgery team including DVT prophylaxis, pain management, wound/dressing management, weightbearing, and PT/OT. Right shoulder/upper chest pain and point tenderness Right hand pain/bruising/swelling -Chest x-ray negative for acute cardiopulmonary process showing demineralization of osseous structures but no acute fracture reported. -X-ray right shoulder completed negative for acute fracture showing moderate narrowing at the acromioclavicular joint. -X-ray right wrist and hand completed negative for acute displaced fracture revealing mild to moderate degenerative changes in the first metacarpal and triscaphe joint with mild to moderate narrowing to the PIP and DIP joints of the phalanges Daily alcohol use/abuse -Continue monitoring of CIWA scores and patient to be medicated with Ativan 0.5 mg every 4 hours as needed for CIWA score of 4-5, Ativan 1 mg every 4 hours for CIWA score of 6-7, Ativan 2 mg every 3 hours CIWA score of 8-9, and Ativan 2 mg every 2 hours forr CIWA score of 10 or greater. -Continuous IV hydration. -Thiamine 100 mg daily, and Multivitamin daily, and Folate 1 mg daily -Seizure, fall, aspiration, and elopement precautions in place. -Continued close monitoring of electrolytes and replace as needed. -Telemetry monitoring. Acute on chronic normocytic anemia -Preoperative hemoglobin 9.1 with postoperative hemoglobin of 8.0. -Patient is also on home anticoagulant with Eliquis, currently held for pending surgical procedure. -Continue close monitoring with repeat CBC and transfuse as indicated for hemoglobin less than 7. Paroxysmal Atrial fibrillation -Eliquis held at this time secondary to impending surgical procedure, patient to continue with metoprolol 25 mg twice daily. Anxiety with depression -Continue home medication regimen with sertraline 100 mg daily as needed for anxiety. Data and imaging reviewed: Vital signs reviewed. Blood pressure 149/70, heart rate 136, respiratory rate 20, temp 97.8 F, and SpO2 of 100% on room air. Morning labs reviewed. CBC showing hemoglobin of 8.0. BMP showing slightly elevated anion gap of 12.40 otherwise normal findings. Blood glucose was 115. Magnesium slightly low at 1.7. Liver profile unremarkable with exception of low total protein of 5.2 and albumin of 3.1. CODE STATUS: Full code DVT prophylaxis: DVT prophylaxis as per orthopedic surgery team, recommend resumption of Eliquis once medically cleared by Ortho to resume. Anticipated discharge date: Pending clinical course Anticipated discharge place: Home with home care versus rehab Patient was seen independently by Nurse Practitioner. This document was prepared using [employer] dictation software. Please allow for errors in auto adjudication specialist while rare they do occur. Matti Shields NP rendered care for this patient independently, reviewed the findings and plan as documented in the note above and agree with plan. I did not physically speak with or examine the patient on this date. Objective - Vital Signs Vital signs: Vital Signs Temp 97.8 F 01/10/25 07:28 Pulse 136 H 01/10/25 07:28 Resp 20 01/10/25 07:28 BP 149/70 01/10/25 07:28 Pulse Ox 100 01/10/25 07:28 FiO2 Intake & Output 01/09/25 01/10/25 01/10/25 18:59 06:59 18:59 Intake Total 1170 500 Output Total 400 300 Balance 770 200 Intake: IV 1170 250 Invasive Line 2 20 Oral 250 Output: Urine 400 100 Estimated Blood Loss 200 Other: Voiding Method Indwelling Catheter Indwelling Catheter # Voids 700 - Labs CBC & Chem 7: 01/10/25 05:10 01/10/25 05:10 Labs: Abnormal Lab Results - Last 24 Hours (Table) 01/09/25 01/10/25 Range/Units 20:43 05:10 RBC 2.99 L 2.60 L (4.10-5.20) X 10*6/uL Hgb 9.0 L 8.0 L (12.0-15.0) g/dL Hct 29.4 L 25.0 L (37.2-46.3) % MCV 98.3 H (80.0-97.0) FL MCHC 30.6 L (32.0-37.0) g/dL RDW 16.0 H 16.2 H (11.5-14.5) % Neutrophils # 8.71 H (1.80-7.70) X 10*3/uL Lymphocytes # 0.47 L (0.90-5.00) X 10*3/uL Monocytes # 0.17 L (0.20-1.00) X 10*3/uL Eosinophils # 0 L (0.04-0.35) X 10*3/uL
[2025-01-10] MEDS: METOPROLOL TARTRATE 25 MG TAB PO STA (13:29)
[2025-01-10] MEDS: METOPROLOL TARTRATE 50 MG TAB PO SCH (19:55)
[2025-01-11] MEDS: MULTIVITAMINS, THERA 1 EACH TAB PO SCH (08:28)
--- NOTE | 2025-01-11 08:56 | P.PN ---
Subjective Progress Note Date: 01/11/25 Patient is doing relatively well this morning. No acute events per nursing. The patient is having pain as expected in her right leg. She denies chest pain or shortness of breath. Objective - Vital Signs Vital signs: Vital Signs Temp 98.2 F 01/11/25 07:06 Pulse 119 H 01/11/25 07:06 Resp 17 01/11/25 07:06 BP 144/66 01/11/25 07:06 Pulse Ox 94 L 01/11/25 07:06 FiO2 Intake & Output 01/10/25 01/11/25 01/11/25 18:59 06:59 18:59 Intake Total 860 Output Total 2250 500 Balance -1390 -500 Intake: IV 10 Invasive Line 2 10 Intake, IV Titration 850 Amount Sodium Chloride 0.9% 1, 800 000 ml @ 100 mls/hr IV . Q10H [facility] Rx#:[id number] Sodium Chloride 0.9% 50 50 ml @ 0 mls/hr IV .STK-MED ONE with ceFAZolin 2,000 mg Rx#:[id number] Output: Urine 2250 500 Other: Voiding Method Indwelling Catheter Indwelling Catheter - Exam Patient is resting comfortably in bed. She is alert and able to answer questions. A focused exam of the right lower extremity was conducted. There is an intact dressing over the lateral aspect of her right thigh. There is a small amount of strikethrough diffusely throughout the dressing but it is intact. Her thigh is swollen and bruised but compressible. A hinged knee brace is in place. She is able to actively plantarflex and dorsiflex her ankle and her toes. - Labs CBC & Chem 7: 01/10/25 05:10 01/10/25 05:10 Assessment and Plan Assessment: Postoperative day #2 status post open reduction internal fixation of right distal femur fracture Chronic alcohol use Atrial fibrillation Plan: Continue treatment as outlined yesterday. The patient should remain strictly nonweightbearing on her right lower extremity with a hinged knee brace on at all times except for hygiene. I will change her dressing tomorrow. I would encourage mobilization out of bed into a chair. DVT prophylaxis with Eliquis. Discharge planning is in progress and the family has requested [facility] swing bed. We will continue to follow while she is in house.
--- NOTE | 2025-01-11 13:20 | P.PN ---
Subjective Progress Note Date: 01/11/25 Hospital Course: Patient is a very pleasant 74-year-old female with a past medical history of daily alcohol abuse, anxiety, cannabinoid use disorder, and atrial fibrillation on anticoagulation with Eliquis. She presented to our facility as a transfer from [facility] after falling in the bathroom resulting in injury to her right leg. Per ED documentation, EMS was initially called to home but patient refused transfer but later was unable to ambulate due to continued and worsening pain in her right lower extremity so EMS was called back out to the residence and she was taken to [facility]. Patient denied hitting her head or having any loss of consciousness saying she fell directly onto her right knee and leg and that is her only injury. At [facility] patient was found to have a fractured right femur and was transferred to our facility for admission and treatment by orthopedic surgery team. On arrival to our facility, patient underwent evaluation in the emergency department. Vital signs upon arr ival show blood pressure 178/85, heart rate 109, respiratory, temp 98.0 F, and SpO2 of 100% on room air. Labs completed and reviewed. CBC showing leukocytosis with WBC count of 11.8 and hemoglobin of 10.7. Coagulation profile normal findings. BMP showing mild non-anion gap metabolic acidosis with chloride of 113, bicarb of 21, and anion gap of 8. Blood glucose was 137. CT right lower extremity without IV contrast was completed showing an obliquely oriented distal femur fracture with apex angulation of the fracture fragments and previous right hip arthroplasty in place. Per request of orthopedic surgery team patient was admitted under our services and orthopedic surgery on consult. Chest x-ray negative for acute cardiopulmonary process showing demineralization of osseous structures but no acute fracture reported. X-ray right shoulder completed negative for acute fracture showing moderate narrowing at the acromioclavicular joint. X-ray right wrist and hand completed negative for acute displaced fracture revealing mild to moderate degenerative changes in the first metacarpal and triscaphe joint with mild to moderate narrowing to the PIP and DIP joints of the phalanges. 01/09/2025 patient underwent open reduction internal fixation of right supracondylar distal femur fracture with Dr. Manuel. Physical exam: Patient seen and fully evaluated at bedside this morning. She is postoperative day 2 status post ORIF of right femur. Knee immobilzer was removed and pt was placed in a hinged knee brace yesterday afternoon. She reports continued pain throughout her right leg but states improved today from yesterday. Godinez catheter was removed and pt reports she has urinated twice since removal. Pt denies any other complaints at this time. Vital signs reviewed and stable. General: Nontoxic, no distress and appears stated age. Derm: Skin warm and dry, normal coloration for ethnicity.Patient with moderate bruising of right hand/wrist Head: Atraumatic, normocephalic and symmetric. No obvious injury or bruising noted. Eyes: EOM's intact, no lid lag, and anicteric sclera Mouth: no lip lesions, mucus membranes moist Cardiovascular: Tachycardic rate with regular rhythm, normal S1S2, no murmur, positive posterior tibial pulses bilaterally, and cap refill < 2 seconds. Lungs: Respirations even, regular, and unlabored on room air. Lungs CTA bilaterally, no rhonchi, no rales, no wheezing, and no accessory muscle usage. Abdominal: soft, nontender to palpation, no guarding, no appreciable organomegaly Ext: No gross muscle atrophy, no edema, no contractures, right leg with hinged knee brace in place Neuro: Speech clear, face symmetrical and CN II-XII grossly intact with no noted focal neuro deficits Psych: Alert and oriented to person, place, time, and situation. Appropriate and pleasant affect. Assessment and Plan of Care: Status post open reduction and internal fixation of right supracondylar distal femur fracture Right obliquely oriented distal femur fracture -Management per primary admitting orthopedic surgery team including DVT prophylaxis, pain management, wound/dressing management, weightbearing, and PT/OT. -Patient to remain nonweightbearing of right lower extremity per recommendations of orthopedic surgeon. -DVT prophylaxis with Eliquis 5 mg twice daily Right shoulder/upper chest pain and point tenderness Right hand pain/bruising/swelling -Chest x-ray negative for acute cardiopulmonary process showing demineralization of osseous structures but no acute fracture reported. -X-ray right shoulder completed negative for acute fracture showing moderate narrowing at the acromioclavicular joint. -X-ray right wrist and hand completed negative for acute displaced fracture revealing mild to moderate degenerative changes in the first metacarpal and triscaphe joint with mild to moderate narrowing to the PIP and DIP joints of the phalanges Daily alcohol use/abuse -Continue monitoring of CIWA scores and patient to be medicated with Ativan 0.5 mg every 4 hours as needed for CIWA score of 4-5, Ativan 1 mg every 4 hours for CIWA score of 6-7, Ativan 2 mg every 3 hours CIWA score of 8-9, and Ativan 2 mg every 2 hours forr CIWA score of 10 or greater. -Continuous IV hydration. -Thiamine 100 mg daily, and Multivitamin daily, and Folate 1 mg daily -Seizure, fall, aspiration, and elopement precautions in place. -Continued close monitoring of electrolytes and replace as needed. -Telemetry monitoring. Acute on chronic normocytic anemia -Preoperative hemoglobin 9.1 with postoperative hemoglobin of 8.0. -Continue close monitoring with repeat CBC and transfuse as indicated for hemoglobin less than 7. Paroxysmal Atrial fibrillation Sinus tachycardia -Eliquis resumed on 12/10/24 at 5 mg twice daily and metoprolol was increased from 25 mg twice daily to 50 mg twice daily. Anxiety with depression -Continue home medication regimen with sertraline 100 mg daily as needed for anxiety. Data and imaging reviewed: Vital signs reviewed. Blood pressure 149/70, heart rate 136, respiratory rate 20, temp 97.8 F, and SpO2 of 100% on room air. Labs reviewed. CBC showing hemoglobin of 8.0. BMP showing slightly elevated anion gap of 12.40 otherwise normal findings. Blood glucose was 115. Magnesium slightly low at 1.7. Liver profile unremarkable with exception of low total protein of 5.2 and albumin of 3.1. CODE STATUS: Full code DVT prophylaxis: Eliquis Anticipated discharge date: Pending clinical course Anticipated discharge place: Home with home care versus rehab Patient was seen independently by Nurse Practitioner. This document was prepared using [employer] dictation software. Please allow for errors in forest products teacher while rare they do occur. Matti Shields NP rendered care for this patient independently, reviewed the findings and plan as documented in the note above and agree with plan. I did not physically speak with or examine the patient on this date. Objective - Vital Signs Vital signs: Vital Signs Temp 98.6 F 01/11/25 01:33 Pulse 111 H 01/11/25 01:33 Resp 16 01/11/25 01:33 BP 122/64 01/11/25 01:33 Pulse Ox 97 01/11/25 01:33 FiO2 Intake & Output 01/10/25 01/11/25 01/11/25 18:59 06:59 18:59 Intake Total 860 Output Total 2250 500 Balance -1390 -500 Intake: IV 10 Invasive Line 2 10 Intake, IV Titration 850 Amount Sodium Chloride 0.9% 1, 800 000 ml @ 100 mls/hr IV . Q10H [facility] Rx#:[id number] Sodium Chloride 0.9% 50 50 ml @ 0 mls/hr IV .STK-MED ONE with ceFAZolin 2,000 mg Rx#:[id number] Output: Urine 2250 500 Other: Voiding Method Indwelling Catheter Indwelling Catheter - Labs CBC & Chem 7: 01/10/25 05:10 01/10/25 05:10 Labs: Abnormal Lab Results - Last 24 Hours (Table) 01/10/25 01/10/25 Range/Units 05:10 05:10 RBC 2.60 L (4.10-5.20) X 10*6/uL Hgb 8.0 L (12.0-15.0) g/dL Hct 25.0 L (37.2-46.3) % RDW 16.2 H (11.5-14.5) % Anion Gap 12.40 H (4.00-12.00) mmol/L Glucose 115 H (70-110) mg/dL Calcium 8.4 L (8.7-10.3) mg/dL Total Protein 5.2 L (6.2-8.2) g/dL Albumin 3.1 L (3.8-4.9) g/dL Albumin/Globulin Ratio 1.48 L (1.60-3.17) Ratio
[2025-01-11] MEDS: LORazepam 1 MG TAB PO PRN (17:13)
[2025-01-11 20:36] LABS: Anisocytosis Slight; Basophils % (A) 0 %; Eosinophils # (A) 0.1 k/uL (0-0.7); Eosinophils % (A) 2 %; HCT 21.2 % (34.0-46.0); Lymphocytes # (A) 1.1 k/uL (1.0-4.8); Lymphocytes % (A) 20 %; MCH 29.7 pg (25.0-35.0); MCHC 30.7 g/dL (31.0-37.0); MCV 96.9 fL (80.0-100.0); Mean Platelet Volume 8.6; Monocytes # (A) 0.3 k/uL (0-1.0); Monocytes % (A) 6 %; Neutrophils # (A) 3.9 k/uL (1.3-7.7); Neutrophils % (A) 70 %; Platelet Count 307 k/uL (150-450); RBC 2.18 m/uL (3.80-5.40); RDW 16.2 % (11.5-15.5); WBC 5.6 k/uL (3.8-10.6)
[2025-01-11 20:37] LABS: HGB 6.5 gm/dL (11.4-16.0)
[2025-01-12] MEDS: PANTOPRAZOLE 40 MG TABLET PO SCH (06:39)
[2025-01-12 08:15] LABS: ALT 16 U/L (4-34); AST 30 U/L (14-36); African American GFR (CKD) 87 (>60 ml/min/1.73 sqM); Albumin 2.3 g/dL (3.5-5.0); Alkaline Phosphatase 82 U/L (38-126); Anion Gap 4 mmol/L; Blood Urea Nitrogen 11 mg/dL (7-17); Calcium 8.1 mg/dL (8.4-10.2); Carbon Dioxide 26 mmol/L (22-30); Chloride 107 mmol/L (98-107); Globulin 2.2 g/dL; Glucose 101 mg/dL (74-99); Magnesium 1.9 mg/dL (1.6-2.3); Non-African American GFR(CKD) 75 (>60 ml/min/1.73 sqM); Potassium 3.5 mmol/L (3.5-5.1); Sodium 137 mmol/L (137-145); Total Bilirubin 0.6 mg/dL (0.2-1.3); Total Protein 4.5 g/dL (6.3-8.2)
[2025-01-12 08:16] LABS: Anisocytosis Slight; Basophils % (A) 0 %; Eosinophils # (A) 0.2 k/uL (0-0.7); Eosinophils % (A) 3 %; HCT 26.8 % (34.0-46.0); Hypochromasia Slight; Lymphocytes # (A) 1.1 k/uL (1.0-4.8); Lymphocytes % (A) 19 %; MCH 29.1 pg (25.0-35.0); MCHC 30.5 g/dL (31.0-37.0); MCV 95.5 fL (80.0-100.0); Mean Platelet Volume 7.9; Monocytes # (A) 0.3 k/uL (0-1.0); Monocytes % (A) 5 %; Neutrophils # (A) 3.9 k/uL (1.3-7.7); Neutrophils % (A) 70 %; Platelet Count 330 k/uL (150-450); RBC 2.81 m/uL (3.80-5.40); RDW 16.5 % (11.5-15.5); WBC 5.6 k/uL (3.8-10.6)
[2025-01-12 08:24] LABS: HGB 8.2 gm/dL (11.4-16.0)
--- NOTE | 2025-01-12 09:04 | P.PN ---
Subjective Patient is resting comfortably in bed. She is complaining of pain in her right thigh. She denies chest pain or shortness of breath. Objective - Vital Signs Vital signs: Vital Signs Temp 99 F 01/12/25 07:15 Pulse 109 H 01/12/25 07:15 Resp 20 01/12/25 07:15 BP 154/71 01/12/25 07:15 Pulse Ox 96 01/12/25 07:15 FiO2 Intake & Output 01/11/25 01/12/25 01/12/25 18:59 06:59 18:59 Intake Total 1390 Output Total 400 Balance 990 Intake: Oral 1080 Blood Product 310 Rc As-1 Unit 310 [id number] Output: Urine 400 Other: Voiding Method External Catheter External Catheter # Voids 4 - Exam The patient is resting comfortably in bed at time of my evaluation. Her knee brace was taken off. The dressing over the lateral aspect of her right thigh was removed. Ne are in place. There is no drainage from her incision. A new dressing was applied. The thigh and calf are soft and compressible and only moderately swollen. She is able to actively plantarflex and dorsiflex her ankle and her toes. Her foot is warm and well-perfused with brisk capillary refill - Labs CBC & Chem 7: 01/12/25 07:00 01/12/25 06:17 Labs: Abnormal Lab Results - Last 24 Hours (Table) 01/11/25 01/11/25 01/12/25 Range/Units 20:14 21:12 06:17 RBC 2.18 L (3.80-5.40) m/uL Hgb 6.5 L* D (11.4-16.0) gm/dL Hct 21.2 L (34.0-46.0) % MCHC 30.7 L (31.0-37.0) g/dL RDW 16.2 H (11.5-15.5) % Glucose 101 H (74-99) mg/dL Calcium 8.1 L (8.4-10.2) mg/dL Total Protein 4.5 L (6.3-8.2) g/dL Albumin 2.3 L (3.5-5.0) g/dL Crossmatch See Detail 01/12/25 Range/Units 07:00 RBC 2.81 L (3.80-5.40) m/uL Hgb 8.2 L D (11.4-16.0) gm/dL Hct 26.8 L (34.0-46.0) % MCHC 30.5 L (31.0-37.0) g/dL RDW 16.5 H (11.5-15.5) % Glucose (74-99) mg/dL Calcium (8.4-10.2) mg/dL Total Protein (6.3-8.2) g/dL Albumin (3.5-5.0) g/dL Crossmatch Assessment and Plan Assessment: Status post open reduction internal fixation right distal supracondylar femur fracture Multiple medical problems Plan: Continue treatment as outlined previously. Strict nonweightbearing right lower extremity. Brace on when up and out of bed. The brace can be moved while she is resting in bed. Leave dressing in place. DVT prophylaxis with Eliquis. Likely discharge in the next 24 to 48 hours to rehab or [facility] facility.
--- NOTE | 2025-01-12 11:39 | P.PN ---
Subjective Progress Note Date: 01/12/25 Hospital Course: Patient is a very pleasant 74-year-old female with a past medical history of daily alcohol abuse, anxiety, cannabinoid use disorder, and atrial fibrillation on anticoagulation with Eliquis. She presented to our facility as a transfer from [facility] after falling in the bathroom resulting in injury to her right leg. Per ED documentation, EMS was initially called to home but patient refused transfer but later was unable to ambulate due to continued and worsening pain in her right lower extremity so EMS was called back out to the residence and she was taken to [facility]. Patient denied hitting her head or having any loss of consciousness saying she fell directly onto her right knee and leg and that is her only injury. At [facility] patient was found to have a fractured right femur and was transferred to our facility for admission and treatment by orthopedic surgery team. On arrival to our facility, patient underwent evaluation in the emergency department. Vital signs upon arr ival show blood pressure 178/85, heart rate 109, respiratory, temp 98.0 F, and SpO2 of 100% on room air. Labs completed and reviewed. CBC showing leukocytosis with WBC count of 11.8 and hemoglobin of 10.7. Coagulation profile normal findings. BMP showing mild non-anion gap metabolic acidosis with chloride of 113, bicarb of 21, and anion gap of 8. Blood glucose was 137. CT right lower extremity without IV contrast was completed showing an obliquely oriented distal femur fracture with apex angulation of the fracture fragments and previous right hip arthroplasty in place. Per request of orthopedic surgery team patient was admitted under our services and orthopedic surgery on consult. Chest x-ray negative for acute cardiopulmonary process showing demineralization of osseous structures but no acute fracture reported. X-ray right shoulder completed negative for acute fracture showing moderate narrowing at the acromioclavicular joint. X-ray right wrist and hand completed negative for acute displaced fracture revealing mild to moderate degenerative changes in the first metacarpal and triscaphe joint with mild to moderate narrowing to the PIP and DIP joints of the phalanges. 01/09/2025 patient underwent open reduction internal fixation of right supracondylar distal femur fracture with Dr. Manuel. Physical exam: Patient seen and fully evaluated at bedside this morning. She is postoperative day 3 status post ORIF of right femur. Hinged knee brace remains in place. Patient visiting with family members at bedside and reports continued moderate pain with any movement. She denies having any other complaints including dizziness, lightheadedness, chest pain, palpitations, shortness of breath, nausea, vomiting, difficulties with her changes with her urination or experiencing any focal numbness in her extremities. Vital signs reviewed and stable. General: Nontoxic, no distress and appears stated age. Derm: Skin warm and dry, normal coloration for ethnicity.Patient with moderate bruising of right hand/wrist Head: Atraumatic, normocephalic and symmetric. No obvious injury or bruising noted. Eyes: EOM's intact, no lid lag, and anicteric sclera Mouth: no lip lesions, mucus membranes moist Cardiovascular: Tachycardic rate with regular rhythm, normal S1S2, no murmur, positive posterior tibial pulses bilaterally, and cap refill < 2 seconds. Lungs: Respirations even, regular, and unlabored on room air. Lungs CTA bilaterally, no rhonchi, no rales, no wheezing, and no accessory muscle usage. Abdominal: soft, nontender to palpation, no guarding, no appreciable organomegaly Ext: No gross muscle atrophy, no edema, no contractures, right leg with hinged knee brace in place Neuro: Speech clear, face symmetrical and CN II-XII grossly intact with no noted focal neuro deficits Psych: Alert and oriented to person, place, time, and situation. Appropriate and pleasant affect. Assessment and Plan of Care: Status post open reduction and internal fixation of right supracondylar distal femur fracture Right obliquely oriented distal femur fracture -Management per primary admitting orthopedic surgery team including DVT prophylaxis, pain management, wound/dressing management, weightbearing, and PT/OT. -Patient to remain nonweightbearing of right lower extremity per recommendations of orthopedic surgeon. -DVT prophylaxis with Eliquis 5 mg twice daily Acute postoperative blood loss anemia on anemia of chronic disease -Preoperative hemoglobin was 9.0, postoperative hemoglobin 8.0 then down trended down to 6.5. Patient status post 1 unit PRBCs and hemoglobin is stable at 8.2. Will continue to monitor hemoglobin levels closely and transfuse if needed for hemoglobin less than 7. At this time no active bleeding and stable hemoglobin okay to continue Eliquis 5 mg twice daily. Right shoulder/upper chest pain and point tenderness Right hand pain/bruising/swelling -Chest x-ray negative for acute cardiopulmonary process showing demineralization of osseous structures but no acute fracture reported. -X-ray right shoulder completed negative for acute fracture showing moderate narrowing at the acromioclavicular joint. -X-ray right wrist and hand completed negative for acute displaced fracture revealing mild to moderate degenerative changes in the first metacarpal and triscaphe joint with mild to moderate narrowing to the PIP and DIP joints of the phalanges Daily alcohol use/abuse -Continue monitoring of CIWA scores and patient to be medicated with Ativan 0.5 mg every 4 hours as needed for CIWA score of 4-5, Ativan 1 mg every 4 hours for CIWA score of 6-7, Ativan 2 mg every 3 hours CIWA score of 8-9, and Ativan 2 mg every 2 hours forr CIWA score of 10 or greater. Current CIWA score is 2. -Continuous IV hydration. -Thiamine 100 mg daily, and Multivitamin daily, and Folate 1 mg daily -Seizure, fall, aspiration, and elopement precautions in place. -Continued close monitoring of electrolytes and replace as needed. -Telemetry monitoring. Paroxysmal Atrial fibrillation Sinus tachycardia -Eliquis resumed on 12/10/24 at 5 mg twice daily and metoprolol was increased from 25 mg twice daily to 50 mg twice daily. Anxiety with depression -Continue home medication regimen with sertraline 100 mg daily as needed for anxiety. Vitamin D deficiency -Vitamin D level was low at 15.3. Patient was started on ergocalciferol 1250 mcg every 72 hours and cholecalciferol 50 mcg daily. Data and imaging reviewed: Vital signs reviewed. Blood pressure 154/71, heart rate 109, respiratory rate 20, 99.0 F, and SpO2 of 96% on room air Labs reviewed. CBC showing stable hemoglobin of 8.2 status post transfusion of 1 unit PRBCs. BMP unremarkable. Blood glucose 101. Magnesium 1.9. Liver profile normal findings with exception of low total protein of 4.5 and hypoalbum inemia with albumin of 2.3. CODE STATUS: Full code DVT prophylaxis: Eliquis Anticipated discharge date: Pending insurance authorization and placement Anticipated discharge place: SNF vs inpatient rehab at [facility] Patient was seen independently by Nurse Practitioner. This document was prepared using [email or web address] dictation software. Please allow for errors in hydrodynamics professor while rare they do occur. Matti Shields NP rendered care for this patient independently, reviewed the findings and plan as documented in the note above and agree with plan. I did not physically speak with or examine the patient on this date. Objective - Vital Signs Vital signs: Vital Signs Temp 99 F 01/12/25 07:15 Pulse 109 H 01/12/25 07:15 Resp 20 01/12/25 07:15 BP 154/71 01/12/25 07:15 Pulse Ox 96 01/12/25 07:15 FiO2 Intake & Output 01/11/25 01/12/25 01/12/25 18:59 06:59 18:59 Intake Total 1390 Output Total 400 Balance 990 Intake: Oral 1080 Blood Product 310 Rc As-1 Unit 310 [id number] Output: Urine 400 Other: Voiding Method External Catheter External Catheter # Voids 4 - Labs CBC & Chem 7: 01/12/25 07:00 01/12/25 06:17 Labs: Abnormal Lab Results - Last 24 Hours (Table) 01/11/25 01/11/25 01/12/25 Range/Units 20:14 21:12 06:17 RBC 2.18 L (3.80-5.40) m/uL Hgb 6.5 L* D (11.4-16.0) gm/dL Hct 21.2 L (34.0-46.0) % MCHC 30.7 L (31.0-37.0) g/dL RDW 16.2 H (11.5-15.5) % Glucose 101 H (74-99) mg/dL Calcium 8.1 L (8.4-10.2) mg/dL Total Protein 4.5 L (6.3-8.2) g/dL Albumin 2.3 L (3.5-5.0) g/dL Crossmatch See Detail
[2025-01-12] MEDS: ERGOCALCIFEROL 1,250 MCG (50,000 IU) CAPSULE PO SCH (12:14)
[2025-01-12 15:42] LABS: Anisocytosis Slight; Basophils % (A) 0 %; Eosinophils # (A) 0.2 k/uL (0-0.7); Eosinophils % (A) 3 %; HCT 28.8 % (34.0-46.0); HGB 9.2 gm/dL (11.4-16.0); Hypochromasia Moderate; Lymphocytes # (A) 1.2 k/uL (1.0-4.8); Lymphocytes % (A) 20 %; MCV 93.5 fL (80.0-100.0); Mean Platelet Volume 7.1; Monocytes # (A) 0.3 k/uL (0-1.0); Monocytes % (A) 6 %; Neutrophils # (A) 4.3 k/uL (1.3-7.7); Neutrophils % (A) 70 %; Platelet Count 371 k/uL (150-450); RBC 3.07 m/uL (3.80-5.40); RDW 16.3 % (11.5-15.5); WBC 6.1 k/uL (3.8-10.6)
[2025-01-13 04:02] LABS: Anisocytosis Slight; HCT 25.7 % (34.0-46.0); HGB 8.4 gm/dL (11.4-16.0); Hypochromasia Slight; MCH 29.7 pg (25.0-35.0); MCHC 32.6 g/dL (31.0-37.0); MCV 91.2 fL (80.0-100.0); Mean Platelet Volume 7.8; Platelet Count 442 k/uL (150-450); RBC 2.82 m/uL (3.80-5.40); RDW 16.1 % (11.5-15.5); WBC 6.4 k/uL (3.8-10.6)
[2025-01-13 04:07] LABS: ALT 17 U/L (4-34); AST 27 U/L (14-36); African American GFR (CKD) >90 (>60 ml/min/1.73 sqM); Albumin 2.3 g/dL (3.5-5.0); Alkaline Phosphatase 73 U/L (38-126); Anion Gap 2 mmol/L; Blood Urea Nitrogen 16 mg/dL (7-17); Calcium 8.5 mg/dL (8.4-10.2); Carbon Dioxide 26 mmol/L (22-30); Chloride 108 mmol/L (98-107); Globulin 2.2 g/dL; Glucose 102 mg/dL (74-99); Magnesium 1.9 mg/dL (1.6-2.3); Non-African American GFR(CKD) 82 (>60 ml/min/1.73 sqM); Potassium 3.9 mmol/L (3.5-5.1); Sodium 136 mmol/L (137-145); Total Bilirubin 0.5 mg/dL (0.2-1.3); Total Protein 4.5 g/dL (6.3-8.2)
--- NOTE | 2025-01-13 08:01 | P.PN ---
Subjective Progress Note Date: 01/13/25 Patient states the pain is under control this morning. They have been taking [place] 10. They deny any acute events overnight. They are sitting up in bed with knee brace on eating breakfast at time of exam. They are in no acute distress. Objective - Vital Signs Vital signs: Vital Signs Temp 98.6 F 01/13/25 02:00 Pulse 96 01/13/25 02:00 Resp 18 01/13/25 02:00 BP 135/68 01/13/25 02:00 Pulse Ox 97 01/13/25 02:00 FiO2 Intake & Output 01/12/25 01/13/25 01/13/25 18:59 06:59 18:59 Output Total 1700 1200 Balance -1700 -1200 Output: Urine 1700 1200 Other: Voiding Method External Catheter External Catheter - Exam The patient is resting comfortably in bed at time of my evaluation. Her knee brace was left on. There is a OpSite dressing over the lateral right thigh. There is no drainage or strikethrough. The dressing is intact. The right thigh and calf are soft and compressible and only moderately swollen. She is able to actively plantarflex and dorsiflex her ankle and her toes. Her foot is warm and well-perfused with brisk capillary refill - Labs CBC & Chem 7: 01/13/25 03:12 01/13/25 03:12 Labs: Abnormal Lab Results - Last 24 Hours (Table) 01/11/25 01/12/25 01/12/25 Range/Units 20:14 06:17 07:00 RBC 2.81 L (3.80-5.40) m/uL Hgb 8.2 L D (11.4-16.0) gm/dL Hct 26.8 L (34.0-46.0) % MCHC 30.5 L (31.0-37.0) g/dL RDW 16.5 H (11.5-15.5) % Sodium (137-145) mmol/L Chloride (98-107) mmol/L Glucose 101 H (74-99) mg/dL Calcium 8.1 L (8.4-10.2) mg/dL Total Protein 4.5 L (6.3-8.2) g/dL Albumin 2.3 L (3.5-5.0) g/dL Vitamin D 25-Hydroxy 15.3 L (30.0-100.0) ng/mL 01/12/25 01/13/25 01/13/25 Range/Units 15:07 03:12 03:12 RBC 3.07 L 2.82 L (3.80-5.40) m/uL Hgb 9.2 L 8.4 L (11.4-16.0) gm/dL Hct 28.8 L 25.7 L (34.0-46.0) % MCHC (31.0-37.0) g/dL RDW 16.3 H 16.1 H (11.5-15.5) % Sodium 136 L (137-145) mmol/L Chloride 108 H (98-107) mmol/L Glucose 102 H (74-99) mg/dL Calcium (8.4-10.2) mg/dL Total Protein 4.5 L (6.3-8.2) g/dL Albumin 2.3 L (3.5-5.0) g/dL Vitamin D 25-Hydroxy (30.0-100.0) ng/mL Assessment and Plan Assessment: 01/09/2025 Status post open reduction internal fixation right distal supracondylar femur fracture Right obliquely oriented distal femur fracture Multiple medical problems Plan: Continue treatment as outlined previously. Strict nonweightbearing right lower extremity. Brace on when up and out of bed. The brace can be moved while she is resting in bed. Leave dressing in place. DVT prophylaxis with Eliquis. We appreciate internal medicine for perioperative medical management. [facility] Paper prescription and start form placed in patient's chart.
[2025-01-13] MEDS: CHOLECALCIFEROL 25 MCG (1000 IU) TABLET PO SCH (09:13)
--- NOTE | 2025-01-13 11:04 | P.DS ---
Providers Date of admission: 01/07/25 07:00 Expected date of discharge: 01/13/25 Attending physician: Tamera Hinson MD Consults: 01/07/25 06:58 Consult Physician Urgent Consulting Provider: Ashley Rice Reason/Comments: Distal Femur Fracture Do you want consulting provider notified?: Already Contacted Primary care physician: [facility] Hospital Course: Discharge Diagnosis: Status post open reduction and internal fixation of right supracondylar distal femur fracture Right obliquely oriented distal femur fracture Acute postoperative blood loss anemia on anemia of chronic disease. Preoperative hemoglobin was 9.0, postoperative hemoglobin 8.0 then down trended down to 6.5. Patient status post 1 unit PRBCs and hemoglobin is stable at 8.4. Right shoulder/upper chest pain and point tenderness. Chest x-ray negative for acute cardiopulmonary process showing demineralization of osseous structures but no acute fracture reported. X-ray right shoulder completed negative for acute fracture showing moderate narrowing at the acromioclavicular joint. Right hand pain/bruising/swelling. X-ray right wrist and hand completed negative for acute displaced fracture revealing mild to moderate degenerative changes in the first metacarpal and triscaphe joint with mild to moderate narrowing to the PIP and DIP joints of the phalanges Daily alcohol use/abuse. Recommend cessation of use. Patient required no symptom triggered medication administration for symptoms of withdrawal during hospitalization. Continue thiamine 100 mg daily, multivitamin daily, and folate 1 mg daily. Paroxysmal Atrial fibrillation. Continue Eliquis 5 mg twice daily. Sinus tachycardia. Metoprolol was increased 50 mg twice daily. Anxiety with depression Continue home medication regimen with sertraline 100 mg and Xanax 0.5 mg twice daily as needed for anxiety. Vitamin D deficiency Vitamin D level was low at 15.3. Patient was started on ergocalciferol 1250 mcg every 72 hours and cholecalciferol 50 mcg daily. Hospital Course: Patient is a very pleasant 74-year-old female with a past medical history of daily alcohol abuse, anxiety, cannabinoid use disorder, and atrial fibrillation on anticoagulation with Eliquis. She presented to our facility as a transfer from [facility] after falling in the bathroom resulting in injury to her right leg. Per ED documentation, EMS was initially called to home but patient refused transfer but later was unable to ambulate due to continued and worsening pain in her right lower extremity so EMS was called back out to the residence and she was taken to [facility]. Patient denied hitting her head or having any loss of consciousness saying she fell directly onto her right knee and leg and that is her only injury. At [facility] patient was found to have a fractured right femur and was transferred to our facility for admission and treatment by orthopedic surgery team. On arrival to our facility, patient underwent evaluation in the emergency department. Vital signs upon arrival show blood pressure 178/85, heart rate 109, respiratory, temp 98.0 F, and SpO2 of 100% on room air. Labs completed and reviewed. CBC showing leukocytosis with WBC count of 11.8 and hemoglobin of 10.7. Coagulation profile normal findings. BMP showing mild non-anion gap metabolic acidosis with chloride of 113, bicarb of 21, and anion gap of 8. Blood glucose was 137. CT right lower extremity without IV contrast was completed showing an obliquely oriented distal femur fracture with apex angulation of the fracture fragments and previous right hip arthroplasty in place. Per request of orthopedic surgery team patient was admitted under our services and orthopedic surgery on consult. Chest x-ray negative for acute cardiopulmonary process showing demineralization of osseous structures but no acute fracture reported. X-ray right shoulder completed negative for acute fracture showing moderate narrowing at the acromioclavicular joint. X-ray right wrist and hand completed negative for acute displaced fracture revealing mild to moderate degenerative changes in the first metacarpal and triscaphe joint with mild to moderate narrowing to the PIP and DIP joints of the phalanges. 01/09/2025 patient underwent open reduction internal fixation of right supracondylar distal femur fracture with Dr. Manuel. Did have acute on chronic blood loss anemia and received 1 unit PRBCs. Hemoglobin has remained stable and upon discharge is 8.4. Patient being discharged to rehab. She is medically optimized for discharge and cleared by orthopedic surgery team. Patient to remain nonweightbearing of right lower extremity. Physical exam: Vital signs reviewed and stable. General: Nontoxic, no distress and appears stated age. Derm: Skin warm and dry, normal coloration for ethnicity.Patient with moderate bruising of right hand/wrist Head: Atraumatic, normocephalic and symmetric. No obvious injury or bruising noted. Eyes: EOM's intact, no lid lag, and anicteric sclera Mouth: no lip lesions, mucus membranes moist Cardiovascular: Tachycardic rate with regular rhythm, normal S1S2, no murmur, positive posterior tibial pulses bilaterally, and cap refill < 2 seconds. Lungs: Respirations even, regular, and unlabored on room air. Lungs CTA bilaterally, no rhonchi, no rales, no wheezing, and no accessory muscle usage. Abdominal: soft, nontender to palpation, no guarding, no appreciable organomegaly Ext: No gross muscle atrophy, no edema, no contractures, right leg with hinged knee brace in place Neuro: Speech clear, face symmetrical and CN II-XII grossly intact with no noted focal neuro deficits Psych: Alert and oriented to person, place, time, and situation. Appropriate and pleasant affect. A total of 38 minutes of time were spent preparing this complex discharge summary. Pt was discharged on 01/13/25 at 11:03 AM Patient was seen independently by Nurse Practitioner. This document was prepared using [employer] dictation software. Please allow for errors in it admin while rare they do occur. Matti Shields NP rendered care for this patient independently, reviewed the findings and plan as documented in the note above. I did not physically speak with or examine the patient on this date. Patient Condition at Discharge: Stable Plan - Discharge Summary Discharge Rx Participant: No New Discharge Prescriptions: New HYDROcodone/APAP 5-325MG [[place] 5] 1 - 2 each PO Q6HR PRN #28 tab PRN Reason: Pain Omeprazole 20 mg PO DAILY #30 tab Acetaminophen Tab [Tylenol] 650 mg PO Q6HR PRN tab PRN Reason: Mild Pain Or Fever > 100.5 Thiamine [Vitamin B-1] 100 mg PO DAILY tab Cholecalciferol [Vitamin D3 (25 Mcg = 1000 Iu)] 50 mcg PO DAILY tab Ergocalciferol (Vitamin D2) [Drisdol (50,000 Iu)] 1,250 mcg PO WEEKLY #8 cap Sennosides-Docusate Sodium [Senokot-S] 1 tab PO BID PRN #60 tablet PRN Reason: Constipation Folic Acid 1 mg PO DAILY tab Metoprolol Tartrate [Lopressor] 50 mg PO BID tab Multivitamins, Thera [Multivitamin (formulary)] 1 each PO DAILY tab Continue Sertraline [Zoloft] 100 mg PO DAILY PRN PRN Reason: Anxiety Apixaban [Eliquis] 5 mg PO DAILY ALPRAZolam [Xanax] 0.5 mg PO BID PRN #4 tab PRN Reason: Anxiety Discontinued Metoprolol Succinate (ER) [Toprol Xl] 50 mg PO DAILY Zolpidem Tartrate [Zolpidem Tartrate ER] 12.5 mg PO HS PRN PRN Reason: Insomnia Discharge Medication List Sertraline [Zoloft] 100 mg PO DAILY PRN 02/17/15 [History] Apixaban [Eliquis] 5 mg PO DAILY 01/07/25 [History] ALPRAZolam [Xanax] 0.5 mg PO BID PRN #4 tab 01/13/25 [Rx] Acetaminophen Tab [Tylenol] 650 mg PO Q6HR PRN tab 01/13/25 [Rx] Cholecalciferol [Vitamin D3 (25 Mcg = 1000 Iu)] 50 mcg PO DAILY tab 01/13/25 [Rx] Ergocalciferol (Vitamin D2) [Drisdol (50,000 Iu)] 1,250 mcg PO WEEKLY #8 cap 01/13/25 [Rx] Folic Acid 1 mg PO DAILY tab 01/13/25 [Rx] HYDROcodone/APAP 5-325MG [[place] 5] 1 - 2 each PO Q6HR PRN #28 tab 01/13/25 [Rx] Metoprolol Tartrate [Lopressor] 50 mg PO BID tab 01/13/25 [Rx] Multivitamins, Thera [Multivitamin (formulary)] 1 each PO DAILY tab 01/13/25 [Rx] Omeprazole 20 mg PO DAILY #30 tab 01/13/25 [Rx] Sennosides-Docusate Sodium [Senokot-S] 1 tab PO BID PRN #60 tablet 01/13/25 [Rx] Thiamine [Vitamin B-1] 100 mg PO DAILY tab 01/13/25 [Rx] Follow up Appointment(s)/Referral(s): Ramiro Marin DO [Primary Care Provider] - 1-2 days Darwin Manuel MD [Medical Doctor] - 2 Weeks Activity/Diet/Wound Care/Special Instructions: Orthopedic discharge instructions 1. Strict nonweightbearing on your right lower extremity for 6 weeks following surgery 2. Leave the hinged knee brace in place for 2 weeks at all times except for hygiene. 3. Leave surgical dressing in place until your postoperative appointment. If it becomes saturated please contact our office 4. It is okay to shower with your dressing on but do not fully submerge in water 5. Take pain medications as prescribed 6. Contact our office for follow-up 2 weeks after your surgery. Our phone number is [phone] Discharge Disposition: TRANSFER TO SNF/ECF
[2025-01-13 16:13] VITALS: BMI 21.6
[2025-01-13] MEDS: ACETAMINOPHEN TAB 325 MG TAB PO PRN (20:04)
[2025-01-14 07:14] VITALS: BP 151/70; PULSE 109; RESP 15; TEMP 98.4
--- NOTE | 2025-01-14 09:41 | P.DS ---
Providers Date of admission: 01/07/25 07:00 Expected date of discharge: 01/14/25 Attending physician: Tamera Hinson MD Consults: 01/07/25 06:58 Consult Physician Urgent Consulting Provider: Ashley Rice Reason/Comments: Distal Femur Fracture Do you want consulting provider notified?: Already Contacted Primary care physician: Ramiro Abad [facility] Course: Discharge Diagnosis: Status post open reduction and internal fixation of right supracondylar distal femur fracture. Patient to remain nonweightbearing of right lower extremity at all times until further follow-up with orthopedic surgeon and activity is advanced. Patient to wear hinged right knee brace at all times except while bathing. Patient may shower but no tub soaks or baths. Right obliquely oriented distal femur fracture Acute postoperative blood loss anemia on anemia of chronic disease. Preoperative hemoglobin was 9.0, postoperative hemoglobin 8.0 then down trended down to 6.5. Patient status post 1 unit PRBCs and hemoglobin is stable at 8.4. Right shoulder/upper chest pain and point tenderness. Chest x-ray negative for acute cardiopulmonary process showing demineralization of osseous structures but no acute fracture reported. X-ray right shoulder completed negative for acute fracture showing moderate narrowing at the acromioclavicular joint. Right hand pain/bruising/swelling. X-ray right wrist and hand completed negative for acute displaced fracture revealing mild to moderate degenerative changes in the first metacarpal and triscaphe joint with mild to moderate narrowing to the PIP and DIP joints of the phalanges Daily alcohol use/abuse. Recommend cessation of use. Patient required no symptom triggered medication administration for symptoms of withdrawal during hospitalization. Continue thiamine 100 mg daily, multivitamin daily, and folate 1 mg daily. Paroxysmal Atrial fibrillation. Continue Eliquis 5 mg twice daily. Sinus tachycardia. Metoprolol was increased 50 mg twice daily. Anxiety with depression Continue home medication regimen with sertraline 100 mg and Xanax 0.5 mg twice daily as needed for anxiety. Vitamin D deficiency Vitamin D level was low at 15.3. Patient was started on ergocalciferol 1250 mcg every 72 hours and cholecalciferol 50 mcg daily. Hospital Course: Patient is a very pleasant 74-year-old female with a past medical history of daily alcohol abuse, anxiety, cannabinoid use disorder, and atrial fibrillation on anticoagulation with Eliquis. She presented to our facility as a transfer from [facility] after falling in the bathroom resulting in injury to her right leg. Per ED documentation, EMS was initially called to home but patient refused transfer but later was unable to ambulate due to continued and worsening pain in her right lower extremity so EMS was called back out to the residence and she was taken to [facility]. Patient denied hitting her head or having any loss of consciousness saying she fell directly onto her right knee and leg and that is her only injury. At [facility] patient was found to have a fractured right femur and was transferred to our facility for admission and treatment by orthopedic surgery team. On arrival to our facility, patient underwent evaluation in the emergency department. Vital signs upon arrival show blood pressure 178/85, heart rate 109, respiratory, temp 98.0 F, and SpO2 of 100% on room air. Labs completed and reviewed. CBC showing le ukocytosis with WBC count of 11.8 and hemoglobin of 10.7. Coagulation profile normal findings. BMP showing mild non-anion gap metabolic acidosis with chloride of 113, bicarb of 21, and anion gap of 8. Blood glucose was 137. CT right lower extremity without IV contrast was completed showing an obliquely oriented distal femur fracture with apex angulation of the fracture fragments and previous right hip arthroplasty in place. Per request of orthopedic surgery team patient was admitted under our services and orthopedic surgery on consult. Chest x-ray negative for acute cardiopulmonary process showing demineralization of osseous structures but no acute fracture reported. X-ray right shoulder completed negative for acute fracture showing moderate narrowing at the acromioclavicular joint. X-ray right wrist and hand completed negative for acute displaced fracture revealing mild to moderate degenerative changes in the first metacarpal and triscaphe joint with mild to moderate narrowing to the PIP and DIP joints of the phalanges. 01/09/2025 patient underwent open reduction internal fixation of right supracondylar distal femur fracture with Dr. Manuel. Did have acute on chronic blood loss anemia and received 1 unit PRBCs. Hemoglobin has remained stable and upon discharge is 8.4. Patient being discharged to rehab. She is medically optimized for discharge and cleared by orthopedic surgery team. Patient to remain nonweightbearing of right lower extremity. Physical exam: Vital signs reviewed and stable. General: Nontoxic, no distress and appears stated age. Derm: Skin warm and dry, normal coloration for ethnicity.Patient with moderate bruising of right hand/wrist Head: Atraumatic, normocephalic and symmetric. No obvious injury or bruising noted. Eyes: EOM's intact, no lid lag, and anicteric sclera Mouth: no lip lesions, mucus membranes moist Cardiovascular: Tachycardic rate with regular rhythm, normal S1S2, no murmur, positive posterior tibial pulses bilaterally, and cap refill < 2 seconds. Lungs: Respirations even, regular, and unlabored on room air. Lungs CTA bilaterally, no rhonchi, no rales, no wheezing, and no accessory muscle usage. Abdominal: soft, nontender to palpation, no guarding, no appreciable organomegaly Ext: No gross muscle atrophy, no edema, no contractures, right leg with hinged knee brace in place Neuro: Speech clear, face symmetrical and CN II-XII grossly intact with no noted focal neuro deficits Psych: Alert and oriented to person, place, time, and situation. Appropriate and pleasant affect. A total of 38 minutes of time were spent preparing this complex discharge summary. Pt was discharged on 01/14/25 at 9:38 AM Patient was seen independently by Nurse Practitioner. This document was prepared using [employer] dictation software. Please allow for errors in personal counselor while rare they do occur. Matti Shields NP rendered care for this patient independently, reviewed the findings and plan as documented in the note above. I did not physically speak with or examine the patient on this date. Patient Condition at Discharge: Stable Plan - Discharge Summary Discharge Rx Participant: No New Discharge Prescriptions: New HYDROcodone/APAP 5-325MG [Chili 5] 1 - 2 each PO Q6HR PRN #28 tab PRN Reason: Pain Omeprazole 20 mg PO DAILY #30 tab Acetaminophen Tab [Tylenol] 650 mg PO Q6HR PRN tab PRN Reason: Mild Pain Or Fever > 100.5 Thiamine [Vitamin B-1] 100 mg PO DAILY tab Cholecalciferol [Vitamin D3 (25 Mcg = 1000 Iu)] 50 mcg PO DAILY tab Ergocalciferol (Vitamin D2) [Drisdol (50,000 Iu)] 1,250 mcg PO WEEKLY #8 cap Sennosides-Docusate Sodium [Senokot-S] 1 tab PO BID PRN #60 tablet PRN Reason: Constipation Folic Acid 1 mg PO DAILY tab Metoprolol Tartrate [Lopressor] 50 mg PO BID tab Multivitamins, Thera [Multivitamin (formulary)] 1 each PO DAILY tab Continue Sertraline [Zoloft] 100 mg PO DAILY PRN PRN Reason: Anxiety Apixaban [Eliquis] 5 mg PO DAILY ALPRAZolam [Xanax] 0.5 mg PO BID PRN #4 tab PRN Reason: Anxiety Discontinued Metoprolol Succinate (ER) [Toprol Xl] 50 mg PO DAILY Zolpidem Tartrate [Zolpidem Tartrate ER] 12.5 mg PO HS PRN PRN Reason: Insomnia Discharge Medication List Sertraline [Zoloft] 100 mg PO DAILY PRN 02/17/15 [History] Apixaban [Eliquis] 5 mg PO DAILY 01/07/25 [History] ALPRAZolam [Xanax] 0.5 mg PO BID PRN #4 tab 01/13/25 [Rx] Acetaminophen Tab [Tylenol] 650 mg PO Q6HR PRN tab 01/13/25 [Rx] Cholecalciferol [Vitamin D3 (25 Mcg = 1000 Iu)] 50 mcg PO DAILY tab 01/13/25 [Rx] Ergocalciferol (Vitamin D2) [Drisdol (50,000 Iu)] 1,250 mcg PO WEEKLY #8 cap 01/13/25 [Rx] Folic Acid 1 mg PO DAILY tab 01/13/25 [Rx] HYDROcodone/APAP 5-325MG [Chili 5] 1 - 2 each PO Q6HR PRN #28 tab 01/13/25 [Rx] Metoprolol Tartrate [Lopressor] 50 mg PO BID tab 01/13/25 [Rx] Multivitamins, Thera [Multivitamin (formulary)] 1 each PO DAILY tab 01/13/25 [Rx] Omeprazole 20 mg PO DAILY #30 tab 01/13/25 [Rx] Sennosides-Docusate Sodium [Senokot-S] 1 tab PO BID PRN #60 tablet 01/13/25 [Rx] Thiamine [Vitamin B-1] 100 mg PO DAILY tab 01/13/25 [Rx] Follow up Appointment(s)/Referral(s): Ramiro Marin DO [Primary Care Provider] - 1-2 days Darwin Manuel MD [Medical Doctor] - 2 Weeks Activity/Diet/Wound Care/Special Instructions: Orthopedic discharge instructions 1. Strict nonweightbearing on your right lower extremity for 6 weeks following surgery 2. Leave the hinged knee brace in place for 2 weeks at all times except for hygiene. 3. Leave surgical dressing in place until your postoperative appointment. If it becomes saturated please contact our office 4. It is okay to shower with your dressing on but do not fully submerge in water 5. Take pain medications as prescribed 6. Contact our office for follow-up 2 weeks after your surgery. Our phone number is [phone] Discharge Disposition: TRANSFER TO SNF/ECF
== END 2025-01-14 11:19 | DRG 481 ==
LOC: EC 04:57 → 4SSUR 07:00
PROVIDERS: ADMIT Internal Medicine; ATTEND Internal Medicine
PROC: 0QSB04Z Reposition Right Lower Femur with Internal Fixation Device, Open Approach (ICD-10-PCS; principal; 2025-01-09 16:00)
PROC: 30233N1 Transfusion of Nonautologous Red Blood Cells into Peripheral Vein, Percutaneous Approach (ICD-10-PCS; 2025-01-12)
DX: S72.451A Displaced supracondylar fracture without intracondylar extension of lower end of right femur, initial encounter for closed fracture (principal); D62 Acute posthemorrhagic anemia; E87.20 Acidosis, unspecified; D63.8 Anemia in other chronic diseases classified elsewhere; F10.20 Alcohol dependence, uncomplicated; F32.A Depression, unspecified; F12.10 Cannabis abuse, uncomplicated; I48.0 Paroxysmal atrial fibrillation; W18.30XA Fall on same level, unspecified, initial encounter; K21.9 Gastro-esophageal reflux disease without esophagitis; F41.1 Generalized anxiety disorder; M19.90 Unspecified osteoarthritis, unspecified site; D72.829 Elevated white blood cell count, unspecified; E55.9 Vitamin D deficiency, unspecified; Y92.002 Bathroom of unspecified non-institutional (private) residence as the place of occurrence of the external cause; Z79.01 Long term (current) use of anticoagulants; Z79.899 Other long term (current) drug therapy; Z87.891 Personal history of nicotine dependence; Z96.641 Presence of right artificial hip joint; Z28.310 Unvaccinated for COVID-19; Z75.1 Person awaiting admission to adequate facility elsewhere
CPT/HCPCS: 36415; 51702; 71045; 80048; 80053; 82306; 83735; 85025; 85027; 85610; 85730; 86850; 86900; 86901; 86920; 93005; 96374; 96375; 96376; 99285